=== PATIENT | male | born 1950 | race Caucasian/White ===

== ENCOUNTER 2017-10-29 15:36 | Emergency (ER) | payer MEDICARE, OTHER ==
--- NOTE | 2017-10-29 16:50 | ER Report ---
History and Physical Time Seen By MD: 15:51 Hx. of Stated Complaint: PT REPORTS HE FELL A COUPLE OF WEEKS AGO, INJURED L FINGERS HPI/ROS CHIEF COMPLAINT: Third and fourth finger dislocations HISTORY OF PRESENT ILLNESS: 67-year-old male patient presents to the emergency room with complaint of third and fourth finger dislocations on the left hand. Patient states that 2 weeks ago he fell in his kitchen. He states that he dislocated his fingers at that time. He states he did see his primary care provider week ago. He came in today to have x-rays done which were ordered by his primary care provider and was referred to the emergency room and they were unable to contact the provider. Patient states he is has some decreased sensation in the ring finger. He has taken ibuprofen for this but no other medication. REVIEW OF SYSTEMS: Respiratory: No cough, no dyspnea. Cardiovascular: No chest pain, no palpitations. Gastrointestinal: No vomiting, no abdominal pain. Musculoskeletal: As noted above Allergies: Coded Allergies: bupropion (Verified Allergy, Mild, 10/29/17) Home Meds Active Scripts Magnesium Chloride (SLOW-MAG) 71.5 Mg Tablet.dr, 71.5 MG PO TID for 7 Days Prov:JIMMY TADEO 05/06/17 Reported Medications Lisinopril/Hydrochlorothiazide (LISINOPRIL-HCTZ 20-12.5 MG TAB) 1 Each Tablet, 1 EACH PO BID 05/06/17 Citalopram Hydrobromide (CITALOPRAM HBR) 40 Mg Tablet, QDAY 04/30/17 Ranitidine Hcl (Zantac 300 Mg) 300 Mg Tablet, 300 MG PO QHS 11/22/12 Aspirin (Aspirin) 81 Mg Tablet., 81 MG PO DAILY, 0 Refills 10/05/10 Past Medical/Surgical History Patient has a past medical history of hypertension, pneumonia, reflux, enlarged prostate, back pain, alcohol use, depression, anxiety, cancer. Patient has surgical history of tumor removed, right shoulder surgery, hernia repair. Patient has a family medical history of cancer. Reviewed Nurses Notes: Yes Hx Smoking: No Hx Substance Use Disorder: No Hx Alcohol Use: Yes (1 DRINK NIGHTLY, BOURBON) Constitutional Vital Sign - Last 24 Hours 10/29/17 10/29/17 15:40 18:13 Temp 98.4 Pulse 86 82 Resp 16 16 B/P (MAP) 127/84 134/95 (108) Pulse Ox 90 90 O2 Delivery Room Air Room Air Physical Exam General Appearance: The patient is alert, has no immediate need for airway protection and no current signs of toxicity. ENT: Tympanic membranes are pearly-jules, auditory canals are patent, mucous membranes are moist. Respiratory: Chest is non tender, lungs are clear to auscultation. Cardiac: regular rate and rhythm Gastrointestinal: Abdomen is soft and non tender, no masses, bowel sounds normal. Musculoskeletal: Neck: Neck is supple and non tender. Extremities have full range of motion and are non tender. Patient has obvious deformity of the third and fourth fingers, with the third finger being shortened and slightly rotated, fourth finger is obviously shortened. Patient does have a closed wound to the lateral aspect of the left third finger, it is slightly red. Skin: No rashes or lesions. DIFFERENTIAL DIAGNOSIS: After history and physical exam differential diagnosis was considered for third and fourth finger dislocations. Medical Decision Making ED Course/Re-evaluation ED Course Patient was admitted to exam room, history and physical were obtained. Differential diagnoses were considered. Patient was referred to the hospital to get x-rays on his fingers. When the x-rays were done and there was noted that they were dislocated. He was referred to the emergency room at that time. On exam his obvious that the patient has deformity of the third and fourth fingers of left hand. A digital block was performed on both the third and fourth fingers. I attempted to reduce the dislocations. I was unsuccessful. I did place the patient in finger traps. I applied 5 pounds of traction. On reevaluation the fingers look improved, I did attempt to reduce, with the hope that the wait would fatigue the muscles allowing for easy reduction. I was unable to reduce it at that time. I did place him back in the finger traps, this time with 9 pounds of traction. I left him in the traction for approximately 40 minutes, at which time I'd skin attempted reduce, I was unable to. Dr. Palacios, ER physician, also attempted to reduce the fingers, was unable. At that time I discussed the case with Dr. Li, orthopedist, he said that we could go ahead and let the patient go. That he would look at the x-rays and he returned to [facility]. At which time he would discuss the case with me. He did look at the x-rays, felt that it was a more complex reduction. He will talk with the patient tomorrow to discuss options for reduction. Contact information was given to Dr. Li. Patient is currently taking Keflex 500 mg twice a day. He is to continue taking that. I discussed this with the patient who verbalized understanding and agreement with plan. Decision to Disposition Date: Oct 29, 2017 Decision to Disposition Time: 17:57 Depart Departure Latest Vital Signs Vital Signs Date Time Temp Pulse Resp B/P (MAP) Pulse Ox O2 Delivery O2 Flow Rate FiO2 10/29/17 18:13 82 16 134/95 (108) 90 Room Air 10/29/17 15:40 98.4 Impression: Primary Impression: Dislocation, fingers Condition: Condition Unchanged Disposition: HOME OR SELF-CARE Referrals: SIS ALDRICH DO (PCP) Patient Instructions: Finger Dislocation (ED) Additional Instructions: Limit activity by pain. You will be called tonight by either myself or Dr. Li. Continue with Ibuprofen and Tylenol as needed for pain. Return to the ER if condition worsens. Problem Qualifiers Primary Impression: Dislocation, fingers Encounter type: initial encounter Qualified Codes: S63.259A - Unspecified dislocation of unspecified finger, initial encounter JASON DUKESP Oct 29, 2017 16:50
[2017-10-29 18:13] VITALS: BP 134/95
== END 2017-10-29 18:13 | disposition home or self-care (01) ==
LOC: ER 15:47
DX: S63.253A Unspecified dislocation of left middle finger, initial encounter (principal); S63.255A Unspecified dislocation of left ring finger, initial encounter
CPT/HCPCS: 99283

== ENCOUNTER → 2017-10-29 | Outpatient (CLI) | payer MEDICARE, OTHER ==
[~2017-10-29] MED LIST: ALP5 PO; ASPI-715 PO; CITA-128 PO; CITA-141; FLOMAX; GABA-547; GLUC-232 PO; LISI-347 PO; LISI-353 PO; LISINOPRIL-HCTZ; MAGN71.52 PO; PAR20 PO; RANI-320 PO; [UNRECOGNIZED DRUG - OTHER]
--- NOTE | 2017-10-29 16:07 | RADIOLOGY IMAGING REPORT ---
[place] [facility] [place] NAME: Rui Mcgarry : 1950 MR: [id number] V: [id number] EXAM DATE: ORDERING PHYSICIAN: SIS ALDRICH TECHNOLOGIST: Location: [facility] Patient: Rui Mcgarry : 1950 Visit/Account:[id number] Date of Sevice: 10/29/2017 FINGER LEFT 4TH DIGIT, FINGER LEFT 3RD DIGIT Indication: Pain and swelling Comparison: None. Findings: There is posterior dislocation of the middle finger at the PIP joint. There is posterior dislocation in the ring finger at the PIP joint. There is a small ossified fragme nt, which is likely at the PIP joint of the ring finger. IMPRESSION: Dislocation PIP joint of both the middle and ring finger left hand. Report Dictated By: Rui Rodriguez at 10/29/2017 3:59 PM Report E-Signed By: Rui Rodriguez at 10/29/2017 4:02 PM WSN:[email or web address]
--- NOTE | 2017-10-29 16:07 | RADIOLOGY IMAGING REPORT ---
FACILITY: [facility] - [place] PATIENT NAME: Rui Mcgarry : 1950 MR: [id number] V: [id number] EXAM DATE: ORDERING PHYSICIAN: SIS ALDRICH TECHNOLOGIST: Location: [facility] - [place] Patient: Rui Mcgarry : 1950 Visit/Account:[id number] Date of Sevice: 10/29/2017 FINGER LEFT 4TH DIGIT, FINGER LEFT 3RD DIGIT Indication: Pain and swelling Comparison: None. Findings: There is posterior dislocation of the middle finger at the PIP joint. There is posterior dislocation in the ring finger at the PIP joint. There is a small ossified fragme nt, which is likely at the PIP joint of the ring finger. IMPRESSION: Dislocation PIP joint of both the middle and ring finger left hand. Report Dictated By: Rui Rodriguez at 10/29/2017 3:59 PM Report E-Signed By: Rui Rodriguez at 10/29/2017 4:02 PM WSN:[email or web address]
== END ==
LOC: RAD 15:05
PROVIDERS: ATTEND Family Medicine
DX: S63.282A Dislocation of proximal interphalangeal joint of right middle finger, initial encounter (principal); S63.284A Dislocation of proximal interphalangeal joint of right ring finger, initial encounter

== ENCOUNTER → 2017-11-02 | Outpatient (CLI) | payer MEDICARE, OTHER ==
--- NOTE | 2017-11-02 15:48 | EKG ---
[place]AC[place] [facility] [place] NAME: KERRI GARCIA : [id number] MR: [id number] V: [id number] EXAM DATE: ORDERING PHYSICIAN: LM WATERS TECHNOLOGIST: GREG Crabtree Reason : PRE-OP Blood Pressure : / mmHG Vent. Rate : 086 BPM Atrial Rate : 086 BPM P-R Int : 160 ms QRS Dur : 094 ms QT Int : 350 ms P-R-T Axes : 041 029 028 degrees QTc Int : 418 ms Normal sinus rhythm Normal ECG When compared with ECG of 06-MAY-2017 21:18, No significant change was found Confirmed by HILARY GREENFIELD ([id number]) on 11/02/2017 6:56:40 PM Referred By: JT Confirmed By:HILARY GREENFIELD
[2017-11-02 16:16] LABS: PLATELET COUNT, AUTOMATED 161 K/uL (150-450)
== END ==
LOC: LAB 15:13
PROVIDERS: ATTEND Anesthesiology
DX: Z01.812 Encounter for preprocedural laboratory examination (principal); Z01.810 Encounter for preprocedural cardiovascular examination; S63.253A Unspecified dislocation of left middle finger, initial encounter; S63.255A Unspecified dislocation of left ring finger, initial encounter
CPT/HCPCS: 36415; 82040; 82247; 82310; 82374; 82435; 82565; 82947; 84075; 84132; 84155; 84295; 84450; 84460; 84520; 85025; 93005

== ENCOUNTER → 2018-04-04 | Outpatient (REF) ==
[~2018-04-04] MED LIST changes: +OMEP-218 PO
== END ==
LOC: AMB 15:41
PROVIDERS: ATTEND Nurse Practitioner
DX: K92.2 Gastrointestinal hemorrhage, unspecified (principal)

== ENCOUNTER → 2018-04-04 | Outpatient (CLI) | payer MEDICARE, OTHER | LOC: AMB 12:35 | PROVIDERS: ATTEND Nurse Practitioner | DX: K92.1 Melena (principal); R19.7 Diarrhea, unspecified; R53.1 Weakness; R06.02 Shortness of breath; I95.9 Hypotension, unspecified | CPT/HCPCS: A0425; A0427 ==

== ENCOUNTER 2018-04-30 12:20 | Inpatient (IN) | payer MEDICARE, OTHER ==
[~2018-04-30] VITALS: Ht 165.1 cm; Wt 101.7 kg
[~2018-04-30 12:20] MED LIST changes: -ALPR-429 PO; -CITA-145 PO; -CITA-156 PO; -Calcium Carbonate/Vitamin D3 PO; -GABA-547 PO; -GABA-549 PO; -HYDR25CA83 PO; -LISI-362 PO; -LISI5TAB25 PO; -MELA3TAB31 PO; -MELO-205 PO; -MULT-1379 PO; -OSCAL D PO; -OXYGENHOME INH; -PANT40SU3 PO; -PANT40TA65 PO; -TOPI-23 PO
--- NOTE | 2018-04-30 12:23 | ER Report ---
History and Physical Time Seen By MD: 12:23 (DIAZ CARNEY MD) HPI/ROS CHIEF COMPLAINT: Chest pain HISTORY OF PRESENT ILLNESS: Patient is a 68-year-old male who is a poor historian who presents to the emergency department via ambulance for call of chest pain.. Earlier this morning the patient developed some chest discomfort he called his primary doctor who told him to come to the emergency department. Patient's last admission was early March to this hospital at which time he was having vomiting blood in GI bleed. He was emergently transfused and transferred to [facility] and underwent opera tion was found to have bleeding ulcers. Patient has a history of prior alcohol use and abuse but at this time denies any. Currently the patient states his symptoms and pain free. He denies any vomiting blood, melena or blood in stools. He denies any nausea or vomiting he denies chest pain or shortness of breath he denies fevers or chills. Patient states that he lives alone with his dog has not been able to take care of himself. EMS arrived to see no findings the patient standing in his driveway and he was brought to the emergency department for evaluation. Return to EMS the patient's house was quite filthy. Patient has been only able to live on one level and not have access to his food apparently. The patient has been urinating and defecating and bucket since he is not able to access his bathroom. REVIEW OF SYSTEMS: Constitutional: No fever, no chills. Eyes: No discharge. ENT: No sore throat. Cardiovascular: Chest pain, no palpitations Respiratory: No cough, no shortness of breath. Gastrointestinal: No abdominal pain, no vomiting. Genitourinary: No hematuria. Musculoskeletal: No back pain. Skin: No rashes. Neurological: No headache. (DIAZ CARNEY MD) Allergies: Coded Allergies: bupropion (Verified Allergy, Mild, 10/29/17) Home Meds Discontinued Reported Medications Topiramate (TOPIRAMATE) 25 Mg Tablet, 25 MG PO BID 04/30/18 Gabapentin (GABAPENTIN) 300 Mg Capsule, 100 MG PO TID, CAPSULE 04/30/18 Pantoprazole Sodium (PANTOPRAZOLE SODIUM) 40 Mg Tablet.dr, 40 MG PO QDAY, TAB.SR 04/30/18 Meloxicam (MELOXICAM) 7.5 Mg Tablet, 7.5 MG PO QDAY 04/30/18 Omeprazole Magnesium (PRILOSEC OTC) 20 Mg Tablet.dr, 1 TAB PO QDAY, TAB 04/04/18 Lisinopril/Hydrochlorothiazide (LISINOPRIL-HCTZ 20-12.5 MG TAB) 1 Each Tablet, 1 EACH PO BID 05/06/17 Citalopram Hydrobromide (CITALOPRAM HBR) 40 Mg Tablet, QDAY 04/30/17 Aspirin (Aspirin) 81 Mg Tablet.dr, 81 MG PO DAILY, 0 Refills 10/05/10 Past Medical/Surgical History Patient has a past medical history of hypertension, pneumonia, reflux, enlarged prostate, back pain, alcohol use, depression, anxiety, cancer. Patient has surgical history of tumor removed, right shoulder surgery, hernia repair. Patient has a family medical history of cancer. (DIAZ CARNEY MD) Hx Smoking: No Hx Substance Use Disorder: No Hx Alcohol Use: Yes (1 DRINK NIGHTLY, BOURBON-sober 1 month) (DIAZ CARNEY MD) Constitutional Vital Sign - Last 24 Hours 04/30/18 04/30/18 04/30/18 04/30/18 12:22 12:23 12:30 12:45 Temp 98.7 Pulse 99 Resp 20 B/P (MAP) 140/88 140/88 (105) 120/89 (99) Pulse Ox 90 O2 Delivery Room Air O2 Flow Rate 1.0 04/30/18 04/30/18 04/30/18 04/30/18 12:50 13:00 13:20 13:30 Pulse 85 78 Resp 21 21 B/P (MAP) 116/75 (89) 112/76 (88) Pulse Ox 99 100 04/30/18 04/30/18 13:50 14:00 Pulse 76 Resp 12 B/P (MAP) 125/89 (101) Pulse Ox 100 (LAURORA,FAISAL V DO) Physical Exam General/Constitutional: Patient is awake, alert, disheveled and unkempt with some difficulty thinking Head: Normocephalic and atraumatic. Eyes: Conjunctival clear, Pupils are equal and reactive to light. Extraocular muscles are intact and symmetrical. Sclera are clear and anicteric. Ears:External canals are clear. Tympanic membranes are clear with normal landmarks and light reflex. Nares: No rhinorrhea or bleeding. Turbinates are pink and moist. Oropharyngeal: Mucous membranes are moist. There is no pharyngeal erythema or exudate. There are no palatal petechiae. Uvula is midline and symmetrical. Acetone-like odor on breath Neck: Supple, no adenopathy. Cardiovascular: Heart is regular rate and rhythm without audible murmurs, rubs or gallops. Pulmonary: Lungs are clear to auscultation bilaterally. There are no wheezes, rales, or rhonchi. Chest rise is symmetrical Abdomen: Soft, nontender, no guarding or peritoneal signs. Surgical incision appears clean dry and intact yoselyn are intact as well. Extremities: No gross deformities, No peripheral cyanosis. Able to move all 4 extremities. Neuro: Alert and oriented X3, Skin: Patient has multiple spider hemangiomas; patient appears pale but does have redness to the creases of the palms with extension of the fingers. (DIAZ CARNEY MD) Medical Decision Making Data Points Result Diagram: 05/02/18 0523 05/02/18 0523 Laboratory Hematology Test 04/30/18 12:25 04/30/18 12:54 04/30/18 12:56 04/30/18 15:20 Red Blood Count 3.35 M/uL (4.00-5.60) Mean Corpuscular Volume 94.8 fL (80.0-96.0) Mean Corpuscular Hemoglobin 30.9 pg (26.0-33.0) Mean Corpuscular Hemoglobin Concent 32.7 g/dL (32.0-36.0) Red Cell Distribution Width 18.8 % (11.5-14.5) Mean Platelet Volume 7.9 fL (7.2-11.1) Neutrophils (%) (Auto) 69.2 % (39.4-72.5) Lymphocytes (%) (Auto) 17.6 % (17.6-49.6) Monocytes (%) (Auto) 12.4 % (4.1-12.4) Eosinophils (%) (Auto) 0.3 % (0.4-6.7) Basophils (%) (Auto) 0.5 % (0.3-1.4) Nucleated RBC Relative Count (auto) 0.0 /100WBC Neutrophils # (Auto) 5.1 K/uL (2.0-7.4) Lymphocytes # (Auto) 1.3 K/uL (1.3-3.6) Monocytes # (Auto) 0.9 K/uL (0.3-1.0) Eosinophils # (Auto) 0.0 K/uL (0.0-0.5) Basophils # (Auto) 0.0 K/uL (0.0-0.1) Nucleated RBC Absolute Count (auto) 0.00 K/uL Prothrombin Time 16.2 seconds (12.0-14.4) Prothromb Time International Ratio 1.29 Activated Partial Thromboplast Time 39 seconds (23-35) Sodium Level 131 mmol/L (137-145) Potassium Level 3.1 mmol/L (3.5-5.0) Chloride Level 91 mmol/L (98-107) Carbon Dioxide Level 27 mmol/L (22-30) Blood Urea Nitrogen 11 mg/dl (9-21) Creatinine 0.80 mg/dl (0.66-1.25) Glomerular Filtration Rate Calc > 60.0 Random Glucose 77 mg/dl (75-110) Total Bilirubin 1.5 mg/dl (0.2-1.3) Aspartate Amino Transf (AST/SGOT) 27 U/L (0-35) Alanine Aminotransferase (ALT/SGPT) 25 U/L (0-56) Alkaline Phosphatase 113 U/L (0-126) B-Type Natriuretic Peptide 312 pg/ml (0-100) Total Protein 6.1 g/dl (6.3-8.2) Albumin 2.6 g/dl (3.5-5.0) Thyroid Stimulating Hormone (TSH) 1.27 uIU/ml (0.46-4.68) Serum Alcohol < 10 mg/dl Ammonia < 9 UMOL/L (9-33) Stool Occult Blood (IFOB) Negative (NEGATIVE) Urine Color Yellow Urine Clarity Clear Urine pH 6.0 pH (4.8-9.5) Urine Specific [place] 1.010 Urine Protein Negative mg/dL (NEGATIVE) Urine Glucose (UA) Negative mg/dL (NEGATIVE) Urine Ketones 20 mg/dL (NEGATIVE) Urine Blood Negative (NEGATIVE) Urine Nitrite Negative (NEGATIVE) Urine Bilirubin Negative (NEGATIVE) Urine Urobilinogen 4.0 mg/dL (0.2-1.9) Urine Leukocyte Esterase Negative (NEGATIVE) Urine RBC None /HPF (0-2/HPF) Urine WBC 2 /HPF (0-5/HPF) Urine Squamous Epithelial Cells Few /LPF (</=FEW) Urine Bacteria Negative /HPF (NONE-FEW) Urine Mucus None /HPF (NONE-FEW) Test 04/30/18 16:30 Calcium Level 6.4 mg/dl (8.4-10.2) Magnesium Level 1.3 mg/dl (1.7-2.2) Troponin I 0.020 ng/ml Urine Opiates Screen Negative Urine Barbiturates Screen Negative Ur Tricyclic Antidepressants Screen Negative Urine Phencyclidine Screen Negative Urine Amphetamines Screen Negative Urine Benzodiazepines Screen Negative Urine Cocaine Screen Negative Urine Cannabinoids Screen Negative Chemistry Test 04/30/18 12:25 04/30/18 12:54 04/30/18 12:56 04/30/18 15:20 White Blood Count 7.4 k/uL (4.5-11.0) Red Blood Count 3.35 M/uL (4.00-5.60) Hemoglobin 10.4 g/dL (14.0-18.0) Hematocrit 31.8 % (42.0-52.0) Mean Corpuscular Volume 94.8 fL (80.0-96.0) Mean Corpuscular Hemoglobin 30.9 pg (26.0-33.0) Mean Corpuscular Hemoglobin Concent 32.7 g/dL (32.0-36.0) Red Cell Distribution Width 18.8 % (11.5-14.5) Platelet Count 182 K/uL (150-450) Mean Platelet Volume 7.9 fL (7.2-11.1) Neutrophils (%) (Auto) 69.2 % (39.4-72.5) Lymphocytes (%) (Auto) 17.6 % (17.6-49.6) Monocytes (%) (Auto) 12.4 % (4.1-12.4) Eosinophils (%) (Auto) 0.3 % (0.4-6.7) Basophils (%) (Auto) 0.5 % (0.3-1.4) Nucleated RBC Relative Count (auto) 0.0 /100WBC Neutrophils # (Auto) 5.1 K/uL (2.0-7.4) Lymphocytes # (Auto) 1.3 K/uL (1.3-3.6) Monocytes # (Auto) 0.9 K/uL (0.3-1.0) Eosinophils # (Auto) 0.0 K/uL (0.0-0.5) Basophils # (Auto) 0.0 K/uL (0.0-0.1) Nucleated RBC Absolute Count (auto) 0.00 K/uL Prothrombin Time 16.2 seconds (12.0-14.4) Prothromb Time International Ratio 1.29 Activated Partial Thromboplast Time 39 seconds (23-35) Glomerular Filtration Rate Calc > 60.0 Total Bilirubin 1.5 mg/dl (0.2-1.3) Aspartate Amino Transf (AST/SGOT) 27 U/L (0-35) Alanine Aminotransferase (ALT/SGPT) 25 U/L (0-56) Alkaline Phosphatase 113 U/L (0-126) B-Type Natriuretic Peptide 312 pg/ml (0-100) Total Protein 6.1 g/dl (6.3-8.2) Albumin 2.6 g/dl (3.5-5.0) Thyroid Stimulating Hormone (TSH) 1.27 uIU/ml (0.46-4.68) Serum Alcohol < 10 mg/dl Ammonia < 9 UMOL/L (9-33) Stool Occult Blood (IFOB) Negative (NEGATIVE) Urine Color Yellow Urine Clarity Clear Urine pH 6.0 pH (4.8-9.5) Urine Specific [place] 1.010 Urine Protein Negative mg/dL (NEGATIVE) Urine Glucose (UA) Negative mg/dL (NEGATIVE) Urine Ketones 20 mg/dL (NEGATIVE) Urine Blood Negative (NEGATIVE) Urine Nitrite Negative (NEGATIVE) Urine Bilirubin Negative (NEGATIVE) Urine Urobilinogen 4.0 mg/dL (0.2-1.9) Urine Leukocyte Esterase Negative (NEGATIVE) Urine RBC None /HPF (0-2/HPF) Urine WBC 2 /HPF (0-5/HPF) Urine Squamous Epithelial Cells Few /LPF (</=FEW) Urine Bacteria Negative /HPF (NONE-FEW) Urine Mucus None /HPF (NONE-FEW) Test 04/30/18 16:30 Calcium Level 6.4 mg/dl (8.4-10.2) Magnesium Level 1.3 mg/dl (1.7-2.2) Troponin I 0.020 ng/ml Urine Opiates Screen Negative Urine Barbiturates Screen Negative Ur Tricyclic Antidepressants Screen Negative Urine Phencyclidine Screen Negative Urine Amphetamines Screen Negative Urine Benzodiazepines Screen Negative Urine Cocaine Screen Negative Urine Cannabinoids Screen Negative Coagulation Test 04/30/18 12:25 Prothrombin Time 16.2 seconds Prothromb Time International Ratio 1.29 Activated Partial Thromboplast Time 39 seconds Toxicology Test 04/30/18 12:25 04/30/18 16:30 Serum Alcohol < 10 mg/dl Urine Opiates Screen Negative Urine Barbiturates Screen Negative Ur Tricyclic Antidepressants Screen Negative Urine Phencyclidine Screen Negative Urine Amphetamines Screen Negative Urine Benzodiazepines Screen Negative Urine Cocaine Screen Negative Urine Cannabinoids Screen Negative Urinalysis Test 04/30/18 15:20 Urine Color Yellow Urine Clarity Clear Urine pH 6.0 pH (4.8-9.5) Urine Specific [place] 1.010 Urine Protein Negative mg/dL (NEGATIVE) Urine Glucose (UA) Negative mg/dL (NEGATIVE) Urine Ketones 20 mg/dL (NEGATIVE) Urine Blood Negative (NEGATIVE) Urine Nitrite Negative (NEGATIVE) Urine Bilirubin Negative (NEGATIVE) Urine Urobilinogen 4.0 mg/dL (0.2-1.9) Urine Leukocyte Esterase Negative (NEGATIVE) Urine RBC None /HPF (0-2/HPF) Urine WBC 2 /HPF (0-5/HPF) Urine Squamous Epithelial Cells Few /LPF (</=FEW) Urine Bacteria Negative /HPF (NONE-FEW) Urine Mucus None /HPF (NONE-FEW) (FAISAL CAI DO) EKG/Imaging EKG Interpretation My EKG interpretation is sinus rhythm with a ventricular rate of 84 bpm. There is extremely poor tremor at baseline tach which are affecting the overall interpretation however it is my impression looking at the monitors well as from physical exam findings and this EKG that this most likely represents normal sinus rhythm with just very poor baseline artifact. Monitor Interpretation: Normal Sinus Rhythm Imaging FACILITY: [facility] - [place] PATIENT NAME: Rui Mcgarry : 1950 MR: [id number] V: [id number] EXAM DATE: [id number] ORDERING PHYSICIAN: DIAZ CARNEY TECHNOLOGIST: Location: [facility] Patient: Rui Mcgarry : 1950 Visit/Account:[id number] Date of Sevice: 04/30/2018 CHEST, 1 view, portable at 1304 hours History: Chest pain COMPARISON: 12/06/2010 FINDINGS: Heart size, pulmonary vasculature, mediastinum and ken are normal. Lungs are clear of infiltrate and atelectasis. No pleural effusions or pneumothorax. Bones are unremarkable. IMPRESSION: Negative study for an acute cardiopulmonary process. No significant change from 11/2010. Report Dictated By: Mariangel Crawford MD at 04/30/2018 1:18 PM Report E-Signed By: Mariangel Crawford MD at 04/30/2018 1:20 PM WSN:[email or web address] (DIAZ CARNEY MD) ED Course/Re-evaluation ED Course 04/30/2018 12:44:35 pm patient is a very poor historian history of significant GI bleed in the last month or so. Now here for evaluation of chest pain apparently is now resolved. Decision to Disposition Date: Apr 30, 2018 Decision to Disposition Time: 18:00 (DIAZ CARNEY MD) Clinical Indication for ER IV: IV Access ED Course 04/30/2018 5:27:37 pm Pts repeat labs showed improvement of the magnesium but no clinical improvement of the calcium. Pt still symptomatic and feels diffuse weakness. I feel pt needs admission. Reviewed case with Dr. Hurt who also felt pt would be better off in the hospital. Spoke with pt and he prefers not to be admitted due to has a dog at home. Pt asked for a few minutes to call his ex and then will decide. 04/30/2018 5:37:06 pm PT willing to stay. Dr. Hurt will attempt to have Physical therapy see him in the morning if they are available on Thursday. Decision to Disposition Date: Apr 30, 2018 Decision to Disposition Time: 17:41 (FAISAL CAI DO) Depart Departure Latest Vital Signs Vital Signs Date Time Temp Pulse Resp B/P (MAP) Pulse Ox O2 Delivery O2 Flow Rate FiO2 04/30/18 14:00 125/89 (101) 04/30/18 13:50 76 12 100 04/30/18 12:45 1.0 04/30/18 12:22 98.7 Room Air (LAURORA,FAISAL V DO) Impression: Primary Impression: Hypomagnesemia Additional Impressions: Hypocalcemia Hypokalemia Weakness Condition: Condition Unchanged Disposition: Admitted from ER Referrals: SSI ALDRICH DO (PCP) Problem Qualifiers DIAZ CARNEY MD Apr 30, 2018 12:23 FAISAL CAI DO Apr 30, 2018 17:30
[2018-04-30] MEDS ORDERED: NS(*) 0.9% 500 ML BAG 500 ML IV ONE (12:34)
[2018-04-30] MEDS ORDERED: ASPIRIN 81 MG CHEW PO ONE (12:35)
[2018-04-30 12:52] LABS: PLATELET COUNT, AUTOMATED 182 K/uL (150-450)
[2018-04-30 13:02] LABS: INR 1.29
[2018-04-30] MEDS ORDERED: CALCIUM GLUC(*)10% 100MG/ML VL 1,000 MG in NS(*) 0.9% 100 ML BAG 100 ML IVPB ONE ×2 (13:10→20:00)
[2018-04-30] MEDS ORDERED: MAGNESIUM SUL* 2 GM/50 ML IVPB 50 ML IVPB ONE (13:10)
--- NOTE | 2018-04-30 13:20 | EKG ---
FACILITY: [facility] PATIENT NAME: KERRI GARCIA : [id number] MR: [id number] V: [id number] EXAM DATE: ORDERING PHYSICIAN: DIAZ CARNEY TECHNOLOGIST: ASHLEY Test Reason : PSYCH Blood Pressure : / mmHG Vent. Rate : 084 BPM Atrial Rate : 081 BPM P-R Int : 000 ms QRS Dur : 080 ms QT Int : 378 ms P-R-T Axes : 000 -02 001 degrees QTc Int : 446 ms Unable to read due to wavy baseline. Recommend repeat ECG. Abnormal ECG When compared with ECG of 02-NOV-2017 15:30, Junctional rhythm has replaced Sinus rhythm Confirmed by HILARY GREENFIELD ([id number]) on 04/30/2018 1:34:14 PM Referred By: ANGELIKA Confirmed By:HILARY GREENFIELD
--- NOTE | 2018-04-30 13:24 | RADIOLOGY IMAGING REPORT ---
[place] [facility] [place]: Rui Mcgarry : 1950 MR: [id number] V: [id number] EXAM DATE: [id number] ORDERING PHYSICIAN: DIAZ CARNEY TECHNOLOGIST: Location: [facility] Patient: Rui Mcgarry : 1950 Visit/Account:[id number] Date of Sevice: 04/30/2018 CHEST, 1 view, portable at 1304 hours History: Chest pain COMPARISON: 12/06/2010 FINDINGS: Heart size, pulmonary vasculature, mediastinum and ken are normal. Lungs are clear of infiltrate an d atelectasis. No pleural effusions or pneumothorax. Bones are unremarkable. IMPRESSION: Negative study for an acute cardiopulmonary process. No significant change from 11/2010. Report Dictated By: Mariangel Crawford MD at 04/30/2018 1:18 PM Report E-Signed By: Mariangel Crawford MD at 04/30/2018 1:20 PM WSN:MARY
[2018-04-30] MEDS ORDERED: POTASSIUM CHL 10 MEQ TABCR PO ONE (15:15)
--- NOTE | 2018-04-30 16:52 | EKG ---
FACILITY: [facility] - [place] PATIENT NAME: KERRI GARCIA : [id number] MR: [id number] V: [id number] EXAM DATE: ORDERING PHYSICIAN: FAISAL CAI TECHNOLOGIST: ASHLEY Test Reason : CONFUSED Blood Pressure : / mmHG Vent. Rate : 107 BPM Atrial Rate : 107 BPM P-R Int : 144 ms QRS Dur : 080 ms QT Int : 356 ms P-R-T Axes : -14 -05 000 degrees QTc Int : 475 ms Wavy baseline makes interpretation difficult. Appears to be sinus tachycardia. Otherwise normal ECG When compared with ECG of 30-APR-2018 12:50, Previous ECG has undetermined rhythm, needs review Confirmed by HILARY GREENFIELD ([id number]) on 04/30/2018 5:28:18 PM Referred By: ANGELIKA Confirmed By:HILARY GREENFIELD
[2018-04-30] MEDS ORDERED: MELO-205 PO (17:14)
[2018-04-30] MEDS ORDERED: PANT40TA65 PO (17:14)
[2018-04-30] MEDS ORDERED: GABA-549 PO (17:14)
[2018-04-30] MEDS ORDERED: TOPI-23 PO (17:14)
[2018-04-30 18:15] VITALS: BP 133/91
[2018-04-30] MEDS ORDERED: ACETAMINOPHEN 325 MG TAB PO PRN (18:20)
--- NOTE | 2018-04-30 19:40 | History & Physical ---
History of Present Illness Chief Complaint The patient is a 68 year old male with PMH significant for recent bleeding ulcer resulting in life flight to [facility] (laparotomy there), HTN and hx of alcohol abuse (none for 1 month) who presents with generalized weakness since returning home from [facility] about 2 weeks ago. History of Present Illness The patient has a history of heavy alcohol use but states he has not had any alcohol since his stay at [facility]. He presented to [facility] on April 04 of this year and was found to be actively bleeding. He was Life Flighted to [facility] where he underwent a laparotomy. The patient is a poor historian and does not recall all of the details of his stay there. He does remember he was told he had "bleeding ulcers" and to stop taking ibuprofen. The patient returned to [place] to the trilevel home he rents. He lives alone with his dog. He was supposed to have Home Health but for reasons that are not entirely clear, this did not occur. The patient states he was so weak he could not manage the stairs in his home. He was unable to get to his kitchen or his bathroom. He was not eating and was urinating and defecating in a bucket. His medications were on the lower level so he states he has not taken any medication since he returned from [facility]. He was not entirely clear about what medications he was supposed to be taking. He did recall taking citalopram for depression/anxiety and lisinopril/HCTZ for HTN. He had been on Prilosec prior to his stay at [facility]. He states he fills short term med s at [facility] and has [facility] as his mail order pharmacy. The patient notes that his balance has been very poor. He has seen Dr. Winston Barrett, neurologist, in [place]. He was told he had "pockets of water on the brain" as the reason for his imbalance. He states he was placed on a couple of medications for this but can not recall what they are or when he last took them. He believes the last time he saw Dr. Barrett was a year ago. The patient complains of feeling generally very weak. His balance is poor. He feels his memory is poor as well. He denies passing any bright red blood per rectum or having any dark tarry stools. He has not had nausea or vomiting. He did have "tingling" in his chest this am which lasted about 20 minutes and this is actually the reason he called EMS. History Problems: (1) Hx of colonic polyp (2) Abnormal colonoscopy (3) History of inguinal hernia repair (4) Hx of spinal surgery (5) H/O repair of rotator cuff (6) Chronic back pain Status: Chronic (7) History of alcohol use Status: Resolved (8) GENERALIZED ANXIETY DISORDER (9) Depression Status: Chronic (10) BPH (benign prostatic hyperplasia) (11) GERD (gastroesophageal reflux disease) Status: Chronic (12) Peptic ulcer disease with hemorrhage (13) HTN (hypertension) Status: Chronic (14) Flexion contractures Comment: L 3rd and 4th fingers. Home Meds Discontinued Reported Medications Topiramate (TOPIRAMATE) 25 Mg Tablet, 25 MG PO BID 04/30/18 Gabapentin (GABAPENTIN) 300 Mg Capsule, 100 MG PO TID, CAPSULE 04/30/18 Pantoprazole Sodium (PANTOPRAZOLE SODIUM) 40 Mg Tablet.dr, 40 MG PO QDAY, TAB.SR 04/30/18 Meloxicam (MELOXICAM) 7.5 Mg Tablet, 7.5 MG PO QDAY 04/30/18 Omeprazole Magnesium (PRILOSEC OTC) 20 Mg Tablet.dr, 1 TAB PO QDAY, TAB 04/04/18 Lisinopril/Hydrochlorothiazide (LISINOPRIL-HCTZ 20-12.5 MG TAB) 1 Each Tablet, 1 EACH PO BID 05/06/17 Citalopram Hydrobromide (CITALOPRAM HBR) 40 Mg Tablet, QDAY 04/30/17 Aspirin (Aspirin) 81 Mg Tablet.dr, 81 MG PO DAILY, 0 Refills 10/05/10 Allergies: Coded Allergies: bupropion (Verified Allergy, Mild, 10/29/17) Patient History: FH: breast cancer MOTHER Other Social/Family Hx The patient lives with his dog in a trilevel home which he rents. 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 He is . Hx Smoking: Yes Smoking Status: Former Smoker Caffeine Intake: Coffee, Soda Caffeine/Cups Per Day: 3 Hx Alcohol Use: Yes (1 DRINK NIGHTLY, [place]-sober 1 month) Hx Substance Use Disorder: No History of IV Drug Use: No Review of Systems Constitutional: Other (Generalized weakness. ) Neurological: Other (Balance is poor. Memory loss. Chronic back and R leg pain.) Eyes: Other (Wears glasses.) ENT: Tinnitus, Other (No pain in teeth.) Cardiovascular: Chest Pain (Tingling in chest earlier today for 20 minutes. No history of heart problems. HTN.) Respiratory: Other (Hx of pneumonia.); No Shortness of Breath Gastrointestinal: No Nausea, No Vomiting, No Diarrhea, No Hematemesis, No Hematochezia, No Melena, No Abdominal Pain; Other (GERD. PUD with recent bleeding ulcer. Denies any trouble swallowing. Inguinal hernia with repair.) Genitourinary: Other (Nocturia.) Musculoskeletal: Pain (Back and R leg, chronic.) Psychiatric: Depression, Anxiety, Other (Hx of heavy alcohol use.) Exam Vital Signs Vital Signs Date Time Temp Pulse Resp B/P (MAP) Pulse Ox O2 Delivery O2 Flow Rate FiO2 04/30/18 18:26 94 Nasal Cannula 2.0 04/30/18 18:15 98.5 104 18 133/91 (105) General Appearance: Alert, Awake, No Acute Distress Neuro: Other (Very slow to answer questions at times. Has trouble focusing. Memory overall is diminished. Gait not tested. Can move all 4 extremities. No facial weakness. The patient has a significant tremor.) Eyes: PERRLA ENT: Moist Mucous Membranes, Other (Teeth in decent repair. Many fillings.) Cardiovascular: Regular Rate and Rhythm, Other (R leg with 1+ pitting edema to the knee.) Respiratory: No Respiratory Distress, Clear to Auscultation GI: Abd Soft and Non-Tender, Other (Midline surgical wound with yoselyn in place. Each staple with some redness surrounding the prongs. No drainage. No swelling.) Lymph: Cervical Nodes Benign Extremities: Warm, Perfused, Other (R LE edema. ) Integumentary: Other (Scaling patch over top of left foot. Some scabbing. Scabbing over R and L toes. L arm with bruising and scratches.) Psych: Alert & Oriented X3, Appropriate Mood & Affect Medical Decision Making Data Points Result Diagram: 04/30/18 1225 04/30/18 1225 Item Value Date Time Calcium Level 6.2 mg/dl *L 04/30/185 Magnesium Level 0.7 mg/dl *L 04/30/18 1225 Total Bilirubin 1.5 mg/dl H 04/30/18 1225 Aspartate Amino Transf (AST/SGOT) 27 U/L 04/30/18 1225 Alanine Aminotransferase (ALT/SGPT) 25 U/L 04/30/18 1225 Alkaline Phosphatase 113 U/L 04/30/18 1225 Total Protein 6.1 g/dl L 04/30/18 1225 Albumin 2.6 g/dl L 04/30/18 1225 B-Type Natriuretic Peptide 312 pg/ml H 04/30/18 1225 Troponin I 0.027 ng/ml 04/30/18 1225 Troponin I 0.020 ng/ml 04/30/18 1630 Ammonia < 9 UMOL/L L 04/30/18 1254 Thyroid Stimulating Hormone (TSH) 1.27 uIU/ml 04/30/18 1225 Calcium Level 6.4 mg/dl *L 04/30/18 1630 Magnesium Level 1.3 mg/dl L 04/30/18 1630 Urine Opiates Screen Negative 04/30/18 1630 Urine Barbiturates Screen Negative 04/30/18 1630 Ur Tricyclic Antidepressants Screen Negative 04/30/18 1630 Urine Phencyclidine Screen Negative 04/30/18 1630 Urine Amphetamines Screen Negative 04/30/18 1630 Urine Benzodiazepines Screen Negative 04/30/18 1630 Urine Cocaine Screen Negative 04/30/18 1630 Urine Cannabinoids Screen Negative 04/30/18 1630 Serum Alcohol < 10 mg/dl 04/30/18 1225 Stool Occult Blood (IFOB) Negative 04/30/18 1256 Prothrombin Time 16.2 seconds H 04/30/18 1225 Prothromb Time International Ratio 1.29 04/30/18 1225 Activated Partial Thromboplast Time 39 seconds H 04/30/18 1225 Urine Color Yellow 04/30/18 1520 Urine Clarity Clear 04/30/18 1520 Urine pH 6.0 pH 04/30/18 1520 Urine Specific [place] 1.010 04/30/18 1520 Urine Protein Negative mg/dL 04/30/18 1520 Urine Glucose (UA) Negative mg/dL 04/30/18 1520 Urine Ketones 20 mg/dL H 04/30/18 1520 Urine Blood Negative 10/5/18 1520 Urine Nitrite Negative 04/30/18 1520 Urine Bilirubin Negative 04/30/18 1520 Urine Leukocyte Esterase Negative 04/30/18 1520 Urine Urobilinogen 4.0 mg/dL H 04/30/18 1520 Urine RBC None /HPF 04/30/18 1520 Urine WBC 2 /HPF 04/30/18 1520 Urine Squamous Epithelial Cells Few /LPF 04/30/18 1520 Urine Bacteria Negative /HPF 04/30/18 1520 Urine Mucus None /HPF 04/30/18 1520 EKG / Imaging EKG Interpretation FACILITY: [facility] PATIENT NAME: RUI MCGARRY : [id number] MR: [id number] V: [id number] EXAM DATE: [id number] ORDERING PHYSICIAN: FAISAL CAI TECHNOLOGIST: ASHLEY Test Reason : CONFUSED Blood Pressure : / mmHG Vent. Rate : 107 BPM Atrial Rate : 107 BPM P-R Int : 144 ms QRS Dur : 080 ms QT Int : 356 ms P-R-T Axes : -14 -05 000 degrees QTc Int : 475 ms Wavy baseline makes interpretation difficult. Appears to be sinus tachycardia. Otherwise normal ECG When compared with ECG of 30-APR-2018 12:50, Previous ECG has undetermined rhythm, needs review Confirmed by HILARY GREENFIELD ([id number]) on 04/30/2018 5:28:18 PM Referred By: ANGELIKA Confirmed By:HILARY GREENFIELD [id number] T: [facility]/ Imaging FACILITY: [facility] PATIENT NAME: Rui Mcgarry : 1950 MR: [id number] V: [id number] EXAM DATE: [id number] ORDERING PHYSICIAN: DIAZ CARNEY TECHNOLOGIST: Location: [facility] Patient: Rui Mcgarry : 1950 Visit/Account:[id number] Date of Sevice: 04/30/2018 CHEST, 1 view, portable at 1304 hours History: Chest pain COMPARISON: 12/06/2010 FINDINGS: Heart size, pulmonary vasculature, mediastinum and ken are normal. Lungs are clear of infiltrate and atelectasis. No pleural effusions or pneumothorax. Bones are unremarkable. IMPRESSION: Negative study for an acute cardiopulmonary process. No significant change from 11/2010. Report Dictated By: Mariangel Crawford MD at 04/30/2018 1:18 PM Report E-Signed By: Mariangel Crawford MD at 04/30/2018 1:20 PM WSN:MARY Pre-Admit Course ED Medications Magnesium, calcium, potassium, NS, ASA. Medical Record Review: Yes Assessment and Plan Problems: (1) Hypomagnesemia Status: Acute Assessment & Plan: He received IV magnesium in the ER and a repeat magnesium level remained low. Place on telemetry. Will give 4g IV and recheck a magnesium in the am. (2) Hypokalemia Status: Acute Assessment & Plan: He received 40meq of oral potassium in ER. Will place on telemetry and add potassium 20meq to each liter of IV fluids. Repeat BMP in am. (3) Hypocalcemia Status: Acute Assessment & Plan: He received a gram of calcium gluconate in ER. His calcium remains low. Will give another gram of calcium gluconate. (4) Weakness Status: Acute Assessment & Plan: Likely due to recent acute medical illness as noted above as well as poor oral intake resulting in multiple electrolyte abnormalities. (5) Peptic ulcer disease Status: Chronic Assessment & Plan: With recent GI bleed. The patient was hospitalized at [facility] and had a laparotomy. Will fax a record request. He has not been taking a PPI since discharge. Will place on pantoprazole. (6) HTN (hypertension) Status: Chronic Assessment & Plan: He reports taking lisinopril/HCTZ in the past. He is currently on no meds. BP is WNL. Will monitor. He may be improved due to alcohol cessation. (7) GERD (gastroesophageal reflux disease) Status: Chronic Assessment & Plan: Will place on pantoprazole here. (8) Depression Status: Chronic Assessment & Plan: He has been on citalopram in the past. (9) History of alcohol use Status: Resolved Assessment & Plan: The patient states he has not had a drink since his stay at [facility]. His alcohol level on admission was <10. (10) Chronic back pain Status: Chronic Assessment & Plan: It appears by his external med history that his mail order pharmacy sent him an RX for meloxicam at the end of March. Will need to student loan counselor him not to take this medication at home due to recent GI bleeding. Time Spent on Plan of Care: < 30 min Copies to: SIS ALDRICH DO ; Venous Thromboembolism Antithrombotics Is Pt On Any Antithrombotics?: No Prophylaxis Tx Contraindicated Pharmacological Contraindicati: Medical Contraindication (Recent GI bleed.) Exam Sepsis Risk: No Definite Risk HILARY OVALLE MD Apr 30, 2018 19:40
[2018-04-30] MEDS: KCL/NS* 20 MEQ/1000 ML PREMIX 1,000 ML IV SCH (20:25)
[2018-04-30] MEDS ORDERED: MAGNESIUM SUL* 4 GM/100 ML BAG 100 ML IVPB ONE (21:00)
[2018-04-30] MEDS: PANTOPRAZOLE SOD 40 MG TABEC PO SCH (21:34)
[2018-04-30 22:54] VITALS: BP 136/99
[2018-05-01] VITALS (8 sets, daily range): BP systolic 99–130; BP diastolic 67–104; Ht 165.1 cm; Wt 101.7 kg
[2018-05-01 07:01] LABS: PLATELET COUNT, AUTOMATED 153 K/uL (150-450)
[2018-05-01] MEDS: PANTOPRAZOLE SOD 40 MG TABEC PO SCH ×2 (08:39→20:19)
[2018-05-01] MEDS: MULTIVITAMINS TAB PO SCH (10:02)
[2018-05-01] MEDS: CALCIUM CARBONATE/VITAMIN D3 PO SCH ×2 (10:02→17:23)
--- NOTE | 2018-05-01 10:35 | Hospitalist Progress Note ---
Subjective Progress Notes Subjective He is more concerned about his dog being alone at home than anything else at this time. He reports appetite is decreased. No abdominal pain. No fever. Physical Exam Vital Signs Date Time Temp Pulse Resp B/P (MAP) Pulse Ox O2 Delivery O2 Flow Rate FiO2 05/01/18 09:46 99.7 20 126/91 (103) 85 Room Air 05/01/18 07:22 101 05/01/18 03:56 2.0 Intake and Output 05/01/18 07:00 Intake Total 892 ml Balance 892 ml Intake IV Total 892 ml # Voids 1 General Appearance: Alert, Awake Cardiovascular: Regular Rate and Rhythm Respiratory: Clear to Auscultation GI: Soft and Non-Tender, Other (incision appears to be healing well) Extremities: Warm, Perfused Result Diagram: 05/01/1865405/01/18654 Monitor Interpretation: Normal Sinus Rhythm Assessment and Plan Problems: (1) Weakness Status: Acute Assessment & Plan: Likely due to recent acute medical illness as well as poor oral intake resulting in protein malnutrition/multiple electrolyte abnormalities. (2) Hypomagnesemia Status: Acute Assessment & Plan: Most likely due to poor oral intake. Improved/resolved with IV replacement. Will start oral replacement therapy. Continue on telemetry. (3) Hypokalemia Status: Acute Assessment & Plan: Most likely due to poor oral intake. Improved with oral/IV replacement. Watch labs. (4) Hypocalcemia Status: Acute Assessment & Plan: Most likely due to poor intake. Improved with IV supplements. Will start Vit D plus calcium. Monitor labs. (5) Peptic ulcer disease Status: Chronic Assessment & Plan: With recent GI bleed. The patient was hospitalized at [facility] and had a laparotomy (yoselyn now removed - no dehiscence). Awaiting record request. He has not been taking PPI therapy since discharge - he is now on pantoprazole. (6) HTN (hypertension) Status: Chronic Assessment & Plan: He reports taking lisinopril/HCTZ in the past. He is currently on no meds. BP is acceptable. Will monitor. He may be improved due to alcohol cessation. (7) GERD (gastroesophageal reflux disease) Status: Chronic Assessment & Plan: Currently on pantoprazole. (8) Depression Status: Chronic Assessment & Plan: He has been on citalopram in the past. (9) History of alcohol use Status: Resolved Assessment & Plan: The patient states he has not had a drink since his stay at [facility]. His alcohol level on admission was <10. (10) Chronic back pain Status: Chronic Assessment & Plan: It appears by his external med history that his mail order pharmacy sent him an RX for meloxicam at the end of March. We will credit counselor him not to take this medication at home due to recent GI bleeding. (11) Anemia due to blood loss Status: Chronic Assessment & Plan: Most likely due to recent UGI bleeding requiring surgical repair (records pending) and possibly recent poor nutrition. Watch closely. Exam Sepsis Risk: No Definite Risk JESSY OVALLE MD May 01, 2018 10:35
[2018-05-01] MEDS: KCL/NS* 20 MEQ/1000 ML PREMIX 1,000 ML IV SCH (15:51)
[2018-05-02 04:00] VITALS: BP 122/86
[2018-05-02] MEDS: KCL/NS* 20 MEQ/1000 ML PREMIX 1,000 ML IV SCH (06:06)
[2018-05-02 06:24] LABS: PLATELET COUNT, AUTOMATED 144 K/uL (150-450)
[2018-05-02 07:42] VITALS: BP 117/91
[2018-05-02] MEDS: MULTIVITAMINS TAB PO SCH (08:19)
[2018-05-02] MEDS: CALCIUM CARBONATE/VITAMIN D3 PO SCH ×2 (08:19→17:35)
[2018-05-02] MEDS: PANTOPRAZOLE SOD 40 MG TABEC PO SCH ×2 (08:19→20:46)
[2018-05-02] MEDS ORDERED: INFLUENZA VIRUS VAC 0.5ML SYR IM ONLY ONE (09:00)
[2018-05-02 12:45] VITALS: BP 136/95
--- NOTE | 2018-05-02 12:49 | Hospitalist Progress Note ---
Subjective Progress Notes Subjective 68M admitted for hypocalcemia. LUMA overight, some improvement in electrolytes. Concern over going home and has said some statements regarding his unhappiness. Patient Complains of: Neurological: Confusion Physical Exam Vital Signs Date Time Temp Pulse Resp B/P (MAP) Pulse Ox O2 Delivery O2 Flow Rate FiO2 05/02/18 09:18 92 Nasal Cannula 1.0 05/02/18 07:42 97.8 73 16 117/91 (100) Intake and Output 05/02/18 06:59 Intake Total 2522 ml Output Total 440 ml Balance 2082 ml Intake Oral 575 ml IV Total 1947 ml Output Urine Total 440 ml # Voids 9 # Bowel Movements 4 General Appearance: Alert, Awake, No Acute Distress Neuro: No Gross deficits Eyes: PERRLA ENT: Normal Psych: Other (mentions depressed, slightly agitated at times.) Result Diagram: 05/02/1852205/02/18522 Monitor Interpretation: Normal Sinus Rhythm Assessment and Plan Problems: (1) Weakness Status: Acute Assessment & Plan: Likely due to recent acute medical illness as well as poor oral intake resulting in protein malnutrition/multiple electrolyte abnormalities. PT/OT. (2) Hypomagnesemia Status: Acute Assessment & Plan: Most likely due to poor oral intake. Improved/resolved with IV replacement. (3) Hypokalemia Status: Acute Assessment & Plan: Most likely due to poor oral intake. Resolved with oral/IV replacement. Watch labs. (4) Hypocalcemia Status: Acute Assessment & Plan: Most likely due to poor intake. Improved with supplements. Continue Vit D plus calcium. Corrects to mildly low for albumin. (5) Peptic ulcer disease Status: Chronic Assessment & Plan: With recent GI bleed. The patient was hospitalized at [facility] and had a laparotomy (yoselyn now removed - no dehiscence). Awaiting record request. He has not been taking PPI therapy since discharge - he is now on pantoprazole. (6) HTN (hypertension) Status: Chronic Assessment & Plan: He reports taking lisinopril/HCTZ in the past. He is currently on no meds. BP is acceptable. Will monitor. He may be improved due to alcohol cessation. (7) GERD (gastroesophageal reflux disease) Status: Chronic Assessment & Plan: Currently on pantoprazole. (8) Depression Status: Chronic Assessment & Plan: He has been on citalopram in the past. Made some concerning statements. Psych consult ordered, recommend restart citalopram at 20mg and follow up outpt. (9) History of alcohol use Status: Resolved Assessment & Plan: The patient states he has not had a drink since his stay at [facility]. His alcohol level on admission was <10. (10) Chronic back pain Status: Chronic Assessment & Plan: It appears by his external med history that his mail order pharmacy sent him an RX for meloxicam at the end of March. We will residential child care counselor him not to take this medication at home due to recent GI bleeding. (11) Anemia due to blood loss Status: Chronic Assessment & Plan: Most likely due to recent UGI bleeding requiring surgical repair (records pending) and possibly recent poor nutrition. Watch closely. Exam Sepsis Risk: No Definite Risk BORGES MAEGAN GIBBONS DO May 02, 2018 12:49
[2018-05-02] MEDS: CITALOPRAM HYDROBROM 20 MG TAB PO SCH (13:31)
[2018-05-02 15:29] VITALS: BP 136/91
[2018-05-02 21:11] VITALS: BP 124/92
[2018-05-02 23:33] VITALS: BP 104/91
[2018-05-03 03:28] VITALS: BP 91/76
[2018-05-03 05:53] LABS: PLATELET COUNT, AUTOMATED 162 K/uL (150-450)
[2018-05-03 07:37] VITALS: BP 134/88
[2018-05-03] MEDS: CALCIUM CARBONATE/VITAMIN D3 PO SCH ×2 (07:55→18:05)
--- NOTE | 2018-05-03 07:55 | CONSULTATION ---
EVENT DATE: May 02, 2018 DATE OF ADMISSION TO MEDICAL FLOOR: April 30, 2018 CONSULTING PHYSICIAN Nelli Morton, Psychiatric Nurse Practitioner REASON FOR CONSULTATION Evaluate for medical recommendations. PRESENTING PROBLEM/CHIEF COMPLAINT "I have had a very bad, bad, bad, bad, bad, bad, bad day. They took my dog away." HISTORY OF PRESENT ILLNESS This is a 68-year-old male seen on the medical floor for consult. He is seen while seated in his chair in his hospital room. He is judged to be a fair historian. He does have some memory deficit. However, he is pleasant and cooperative. Patient reports that he does have a history of depression and he has been treated with citalopram for approximately the past three to four years prescribed by his primary care providers. He feels that it has been helpful for him. However, due to recent medical transfer to [place] and transfer back to his home, where he was not eating or able to take care of his ADLs, he has been off his citalopram for approximately two weeks. He did make a statement today to staff about suicide watch after he was told that his dog has been taken away from him out of his home due to his inability to care for him. Patient denies that he has suicidal intent or plan to harm himself. He reports that he did make that statement but that he would not have the spine to act on suicide. He does not have any history of suicide attempt. As mentioned, his current stressor today is the loss of his dog, who is his office machines wirer. In terms of current symptoms, he reports that he is sleeping okay, appetite has been low. He rates his current depression level as 6. Thoughts of suicide are rated 0. While home, he was living in a house that had three floors and due to his poor mobility he was not able to make it to the bathroom or to cook meals for himself so he was not eating and he was defecating in a bucket. He, therefore, was admitted to the hospital related to nutrition deficit and weakness. He is on no current psychotropic medication as mentioned because he had stopped it. He does state that he has citalopram at home. MENTAL HEALTH HISTORY He reports that he was first treated for depression three to four years ago. He has never been hospitalized for psychiatric reasons. He did see a therapist at [facility] approximately four years ago. However, the therapist left the company and he did not continue on with anyone else. His citalopram has been prescribed by his primary care providers. His last dose was 40 mg daily. He denies any previous medical trials. He denies any suicide attempt. FAMILY PSYCHIATRIC HISTORY Positive for depression in his maternal grandmother, who possibly had depression. He reports his mother is psychotic. He denies any known suicides in his family history. PAST MEDICAL HISTORY He is currently treated for hypocalcemia, hypomagnesemia, hypokalemia, bleeding ulcers, weakness, hypertension, GERD. SOCIAL HISTORY He was born and raised in [facility]. He has been two times. His most recent divorce was ten years ago. He has one adult son, who currently lives in [place]. His ex- that he ten years ago lives in [place], [place]. They have a good relationship and she continues to be supportive. At this point, he reports his and son plan to come out here and pack his belongings and move him to [place] to live near her. As mentioned, he was living alone in a trilevel home where he could not maneuver and, therefore, was not caring for his ADLs including taking his medications appropriately or eating. LEGAL HISTORY Denied. SUBSTANCE ABUSE HISTORY He reports that prior to hospitalization in [place], [place] he was drinking one to two drinks a day. He denies any treatment history for substance abuse. He denies a history of DUIs. Illicit drug use: He reports that since pot was legalized he will use marijuana candy when he can get to [place]. He denies current tobacco use. MENTAL STATUS EXAM GENERAL APPEARANCE, BEHAVIOR AND ATTITUDE: Patient is a 68-year-old male who appears his stated age. He is wearing a hospital gown. He is seated in the chair. He makes good eye contact. He is cooperative and interactive with clinician. No abnormal psychomotor activity is noted. SPEECH: Clear and spontaneous and of normal rate, rhythm and volume. MOOD: Patient describes mood as bad as he relates it to finding out that his dog has been removed from his home. AFFECT: Appropriate. There is no tearfulness noted. He is pleasant and cooperative. THOUGHT PROCESSES: Logical and goal directed. He does get a little bit off topic at times but he redirects easily. THOUGHT CONTENT: No obsessions or compulsions are noted. He denies suicidal thoughts. He denies homicidal thoughts. No delusions are elicited. He denies visual, auditory or other hallucinations. COGNITION: Patient is oriented to person, place and situation. ESTIMATED INTELLIGENCE Average. MEMORY: Immediate, recent and remote are noted to have some limitations. Long- term memory is best. INSIGHT AND JUDGMENT: Fair. He does recognize the presence of his depression. He understands that he is feeling worse today, likely related to all of the psychosocial stressors including losing his dog. He is voicing plans for the future. He is wanting to restart medication. ASSESSMENT AND RECOMMENDATIONS This is a 68-year-old male with a history of depression in his later years. He has been off his citalopram for up to several weeks just related to being transferred to a hospital out of town and then back home without home health care, where he was not caring for his ADLs appropriately. Most recent stressor was finding out that his dog has been removed from his home today and he did make a vague suicidal statement to staff. However, today upon assessment, he clearly denies any intent or plan to harm himself. He has no history of suicide attempt and he is voicing plans for the future. I recommend that his citalopram be restarted at 20 mg and titrated as needed. He is agreeable to outpatient counseling, which I recommend he restart upon discharge. Thank you for this consultation. If you have any questions, I can be reached at [phone]. [facility] SYSTEMMarcio
[2018-05-03] MEDS: CITALOPRAM HYDROBROM 20 MG TAB PO SCH (08:52)
[2018-05-03] MEDS: PANTOPRAZOLE SOD 40 MG TABEC PO SCH ×2 (08:52→21:31)
[2018-05-03] MEDS: MULTIVITAMINS TAB PO SCH (08:52)
[2018-05-03 10:57] VITALS: BP 137/90
--- NOTE | 2018-05-03 11:39 | Hospitalist Progress Note ---
Subjective Progress Notes Subjective He has complaints of suicidal thoughts this morning. He states, "I am sick of laying in a coffin" "I would be better off ". Patient Complains of: Cardiovascular: No: Chest Pain Respiratory: No: Shortness of Breath Physical Exam Vital Signs Date Time Temp Pulse Resp B/P (MAP) Pulse Ox O2 Delivery O2 Flow Rate FiO2 05/03/18 10:57 97.4 83 18 137/90 (106) 92 Room Air 05/03/18 03:28 1.0 Intake and Output 05/03/18 00:59 Intake Total 4327 ml Output Total 615 ml Balance 3712 ml Intake Oral 2980 ml IV Total 1347 ml Output Urine Total 615 ml # Voids 12 # Bowel Movements 1 General Appearance: Alert, Awake, No Acute Distress, Afebrile Neuro: No Gross deficits Cardiovascular: Regular Rate and Rhythm Respiratory: No Respiratory Distress, Clear to Auscultation GI: Soft and Non-Tender Extremities: Warm, Perfused; No Edema Psych: Alert & Oriented X3, Other (He has suicidal thoughts) Result Diagram: 05/03/1851405/03/18514 Monitor Interpretation: Normal Sinus Rhythm Assessment and Plan Problems: (1) Weakness Status: Acute Assessment & Plan: Likely due to recent acute medical illness as well as poor oral intake resulting in protein malnutrition/multiple electrolyte abnormalities. PT/OT. (2) Hypomagnesemia Status: Acute Assessment & Plan: Most likely due to poor oral intake. Improved/resolved with IV replacement. (3) Hypokalemia Status: Acute Assessment & Plan: Most likely due to poor oral intake. Resolved with oral/IV replacement. Watch labs. (4) Hypocalcemia Status: Acute Assessment & Plan: Most likely due to poor intake. Improved with supplements. Continue Vit D plus calcium. Corrects to mildly low for albumin. (5) Peptic ulcer disease Status: Chronic Assessment & Plan: With recent GI bleed. The patient was hospitalized at [facility] and had a laparotomy (yoselyn now removed - no dehiscence). Awaiting record request. He has not been taking PPI therapy since discharge - he is now on pantoprazole. (6) HTN (hypertension) Status: Chronic Assessment & Plan: He reports taking lisinopril/HCTZ in the past. He is currently on no meds. BP is acceptable. Will monitor. He may be improved due to alcohol cessation. (7) GERD (gastroesophageal reflux disease) Status: Chronic Assessment & Plan: Currently on pantoprazole. (8) Depression Status: Chronic Assessment & Plan: He has been on citalopram in the past. Made some concerning statements. Psych consult ordered, recommend restart citalopram at 20mg. He plans to go to [facility] after cleared medically. Probable tomorrow. (9) History of alcohol use Status: Resolved Assessment & Plan: The patient states he has not had a drink since his stay at [facility]. His alcohol level on admission was <10. (10) Chronic back pain Status: Chronic Assessment & Plan: It appears by his external med history that his mail order pharmacy sent him an RX for meloxicam at the end of March. We will certified substance abuse counselor him not to take this medication at home due to recent GI bleeding. (11) Anemia due to blood loss Status: Chronic Assessment & Plan: Most likely due to recent UGI bleeding requiring surgical repair (records pending) and possibly recent poor nutrition. Watch closely. Exam Sepsis Risk: No Definite Risk KONRAD GAINES PHYSICAL SCIENTIST May 03, 2018 11:39
[2018-05-03 12:51] LABS: PLATELET COUNT, AUTOMATED 190 K/uL (150-450)
--- NOTE | 2018-05-03 13:33 | SLP EVALUATION SUMMARY REPORT ---
INITIAL SPEECH THERAPY EVALUATION REPORT Cognitive Linguistic Assessment Patient Name: Rui Mcgarry Date of Evaluation: 05/03/2018 Patient : 1950 Clinician: Sunita Burgos M.S., CCC-STEAM BOX TENDER Treatment Dx: Mild to moderate cognitive linguistic deficits BACKGROUND The patient is a 68 year old male admitted to [facility] w/ complaints of tingling in his chest and arm, generalized weakness, poor balance, and memory deficits. He recently experienced a bleeding ulcer requiring life flight to [facility] for laparotomy. He does not recall details of his stay there. His chart indicates recommendation to receive home health services following hospitalization at [facility]; however, this did not occur. The pt was unable to get to his kitchen or bathroom, unable to reach his medications, he was not eating, and was using bucket in place of a toilet. The pt also presents with history of heavy alcohol use. He resides alone with his dog in a tri-level home. An ST evaluation was ordered to analyze cognitive linguistic status and assist in developing recommendations for a safe and successful discharge. LANGUAGE/COGNITION The Pease Cognitive Assessment (MOCA), Version 7.3, was administered with the following results: -MOCA Total Score (TS): 21/30 = mild to moderate cognitive impairment -Cognitive Domains Demonstrating Deficits: short term memory, working memory, executive function, thought organization, semantic fluency. -Cognitive Domains Demonstrating Strength: visuospatial skills, language, attention, orientation. Overall the pt presents with mild to moderate cognitive communicative deficits most notably characterized by difficulty w/ short-term and working memory. The pt also exhibited decreased thought organization with sudden conversational tangents and difficulty recalling train of thought. Memory deficits were further apparent during informal interview procedures with difficulty remembering most recent meal, hospitalization course, and medication regimen. The pt appeared highly confused and overwhelmed about prior conversations with staff members regarding discharge recommendations and insurance coverage for receipt of home health services. Confusion resulted in intermittent agitation and elevated voice. However, the pt responded well to efforts to build rapport with alleviated agitation/frustration. Reduction was noted in insight re: areas of physical impairment and barriers to discharge. Pt w/ difficulty endorsing elevated need for assistance w/ ADL/IADL activities, and judgement/insight appeared negatively impacted by strong desire to return to home environment. Relative areas of strength were noted during tasks requiring sustained attention, alternating attention, orientation, language, and visuospatial/construction skills. Results indicate the patient may demonstrate difficulty participating in the following IADL tasks: Recall of medication regimen Appointment scheduling/coordination/attendance Remembering to pay bills on time Foresight of environmental obstacles/hazards Analysis and appropriate response to signs/symptoms of medical complications Based on this pts complex social and medical history paired with underlying cognitive linguistic deficits, 24/7 supervision is recommended to optimize safety for ADLs, IADLs, and medical care. If unable to obtain 24/7 support, long-term care placement is recommended. Recommendations were discussed with the pt at the time of evaluation; met with a fair amount of skepticism and resistance. Of note, the pt also expressed suicidal ideations during evaluation encounter (Give me a gun and Ill be much better This is basically a coffin). This is further reflected per charting and staff report. A behavioral health consult is recommended. RECOMMENDATIONS - Acute ST 3x/wk - If unable to obtain 24/7 support, long-term subacute placement is recommended - Behavioral health consult PROGNOSIS: Guarded. Aware of memory deficits, requires encouragement to participate. PLAN OF CARE Short Term Goals 1. The patient will utilize external memory strategies (e.g., written lists, wall signage, calendars) to support recall of 3/4 functional facts when provided with min verbal/visual cues to support capacity for new learning, promote safety, and minimize cognitive overload. 2. The patient will utilize internal memory strategies to promote retention of 2/3 items embedded within a functional activity for improved working memory and completion of ADL/IADLs. Long-Term Goals 1. The patient will demonstrate functional cognitive communication status for safety and maximized independence in d/c environment w/ appropriate access to home and community resources. Thank you for this referral. Please call [phone] Sunita Burgos M.S., CCC-STEAM BOX TENDER [*] KETAN
[2018-05-03 15:38] VITALS: BP 132/99
[2018-05-03 19:10] VITALS: BP 120/84
[2018-05-03 23:00] VITALS: BP 142/99
[2018-05-04 03:31] VITALS: BP 152/104
[2018-05-04 07:45] VITALS: BP 148/99
[2018-05-04] MEDS: CITALOPRAM HYDROBROM 20 MG TAB PO SCH (09:00)
[2018-05-04] MEDS: CALCIUM CARBONATE/VITAMIN D3 PO SCH (09:00)
[2018-05-04] MEDS: MULTIVITAMINS TAB PO SCH (09:00)
[2018-05-04] MEDS: PANTOPRAZOLE SOD 40 MG TABEC PO SCH (09:00)
[2018-05-04 10:43] LABS: PLATELET COUNT, AUTOMATED 209 K/uL (150-450)
[2018-05-04] MEDS ORDERED: MAGNESIUM SUL* 4 GM/100 ML BAG 100 ML IVPB ONE (11:30)
[2018-05-04 11:45] VITALS: BP 113/84
--- NOTE | 2018-05-04 13:10 | Medical Nutrition Therapy ---
Nutrition Anthropometrics Height (Inches): 65.00 Height (Calculated Centimeters: 165.698204 Weight (Pounds): 224 Weight (Calculated Kilograms): 101.718 BMI: 37.3 Rahul Nutrition Score: Adequate Rahul Nutrition Risk Score: 20 Dietary Referral Nutrition Risk Factors: Unplanned Loss >10lbs Nutrition Risk Comment: Physical Findings Physical Appearance: Obese BMI 30-39 Skin Appearance Skin Appearance: Edema Edema Location Modifier: Right Edema Location: Lower Extremity Type of Edema: Degree of Edema: 1+ Gastrointestinal Symptoms GI Symtoms: Tube Present: Bowel Sounds: Recent Bowel Pattern: Stool Characteristics: Nutritional Diagnosis Nutritional Risk Acuity 1: Malnutrition Nutritional Risk Acuity 2: Unintended Wt Loss >5%/mo Past Medical History: Inguinal hernia repair, spinal surgery, repair of rotator cuff, Chronic back pain, alcohol use, GENERALIZED ANXIETY DISORDER, Depression, BPH, GERD, Peptic ulcer disease with hemorrhage, HTN, Flexion contractures Nutritional Acuity: 1-High Nutrition Diagnosis: Inadequate Food Intake Nutrition Etiology: Physiological Causes Nutrition Problem/Etiology/Sym: AEB pt reported unable to get to kitchen to eat, alb 2.3, Mg 1.2 Diet Type: Diet as Tolerated JACKLYN/REG Nutrition Intervention: Cont diet as ordered Additional Diet Restrictions: PUT PROTEIN POWDER IN APPROPRIATE FOODS Diet Comment To [facility]: PROVIDE NUTR SUPPLMENT WITH EACH MEAL. Nutrition Monitoring & Eval Nutrition Goals: Eat 75-100% Meal Nutrition Follow-Up: Poor Intake RD Patient Assessment Time: [address] Assessment Type: RD Assessment Patient Nutrition Acuity: 1-High Follow Up Date: May 07, 2018 Nutritional Comment: 04/30/18 Pt admitted for weakness, hypo,calcemia, hypokalemia, hypomagnesemia. Low H/H, Ca+ 6.6, Alb 2.3, BNP 312. Class II obesity with BMI of 37.3. Receiving JACKLYN with no reports of intake. Follow labs, intake, etc. -DRT 05/04 Pt with dx malnutrition. Pt was home and unable to get to kitchen so had not been eating. Wt down 10% from stated wt of 250# in October 2017. Intake averge 26%. Will provide nutr supplments TID. Pt making suicidal statement which may be affecting intake. Alb cont low at 2.3. Phos WNR, MG low at 1.2. Cont to monitor intake and for s/s refeeding syndrome. MISHEL SAEZ May 04, 2018 13:10
--- NOTE | 2018-05-04 13:56 | Hospitalist Depart ---
Discharge Summary Reason for Hosp/Final Diag: (1) Weakness Status: Acute Hospital Course & Plan: Likely due to recent acute medical illness as well as poor oral intake resulting in protein malnutrition/multiple electrolyte abnormalities. He has been refusing physical therapy, however, he has been able to walk to bathroom without difficulty with a walker. (2) Hypomagnesemia Status: Acute Hospital Course & Plan: Most likely due to poor oral intake. Improved/resolved with IV replacement. (3) Hypokalemia Status: Acute Hospital Course & Plan: Most likely due to poor oral intake. Resolved with oral/IV replacement. (4) Hypocalcemia Status: Acute Hospital Course & Plan: Most likely due to poor intake. Improved with sup plements. Continue Vit D plus calcium. (5) Peptic ulcer disease Status: Chronic Hospital Course & Plan: With recent GI bleed. The patient was hospitalized at [facility] and had a laparotomy (yoselyn now removed - no dehiscence). Awaiting record request. He has not been taking PPI therapy since discharge - he is now on pantoprazole. (6) HTN (hypertension) Status: Chronic Hospital Course & Plan: He reports taking lisinopril/HCTZ in the past. He is currently on no meds. BP is acceptable. Will monitor. He may be improved due to alcohol cessation. (7) GERD (gastroesophageal reflux disease) Status: Chronic Hospital Course & Plan: Currently on pantoprazole. (8) Depression Status: Chronic Hospital Course & Plan: He has been on citalopram in the past. Made some concerning statements. Psych consult ordered, recommend restart citalopram at 20mg. He will be transferred to [facility] for continuation of care. Dr. Dwain campuzano ccepted this patient to [facility]. (9) History of alcohol use Status: Resolved Hospital Course & Plan: The patient states he has not had a drink since his stay at [facility]. His alcohol level on admission was <10. (10) Chronic back pain Status: Chronic Hospital Course & Plan: It appears by his external med history that his mail order pharmacy sent him an RX for meloxicam at the end of March. We will general counsel him not to take this medication at home due to recent GI bleeding. (11) Anemia due to blood loss Status: Chronic Hospital Course & Plan: Most likely due to recent UGI bleeding requiring surgical repair (records pending) and possibly recent poor nutrition. Improved with PPI. Departure Latest Vital Signs Vital Signs 05/03/18 05/04/18 23:00 11:45 Temp 98.2 Pulse 84 Resp 18 B/P (MAP) 113/84 (94) Pulse Ox 96 O2 Delivery Room Air O2 Flow Rate 1.0 Weight (Pounds): 224 Weight (Ounces): 4.0 Result Diagram: 05/04/18 1025 05/04/18 1025 Condition: Improved Discharge: [facility] Discharge Instructions Home Meds Discontinued Reported Medications Topiramate (TOPIRAMATE) 25 Mg Tablet, 25 MG PO BID 04/30/18 Gabapentin (GABAPENTIN) 300 Mg Capsule, 100 MG PO TID, CAPSULE 04/30/18 Pantoprazole Sodium (PANTOPRAZOLE SODIUM) 40 Mg Tablet.dr, 40 MG PO QDAY, TAB.SR 04/30/18 Meloxicam (MELOXICAM) 7.5 Mg Tablet, 7.5 MG PO QDAY 04/30/18 Omeprazole Magnesium (PRILOSEC OTC) 20 Mg Tablet.dr, 1 TAB PO QDAY, TAB 04/04/18 Lisinopril/Hydrochlorothiazide (LISINOPRIL-HCTZ 20-12.5 MG TAB) 1 Each Tablet, 1 EACH PO BID 05/06/17 Citalopram Hydrobromide (CITALOPRAM HBR) 40 Mg Tablet, QDAY 04/30/17 Aspirin (Aspirin) 81 Mg Tablet.dr, 81 MG PO DAILY, 0 Refills 10/05/10 Diet: Regular Activity: As Tolerated, With Walker Copies to: SIS ALDRICH DO ; Venous Thromboembolism Antithrombotics Is Pt On Any Antithrombotics?: No KONRAD GAINES TRANSITION MGR May 04, 2018 13:56
[2018-05-05] MEDS ORDERED: MELO-205 PO (13:17)
[2018-05-05] MEDS ORDERED: GABA-547 PO (13:17)
[2018-05-05] MEDS ORDERED: PANT40TA65 PO (13:17)
[2018-05-05] MEDS ORDERED: CITA-156 PO (15:21)
[2018-05-05] MEDS ORDERED: OSCAL D PO (15:22)
[2018-05-05] MEDS ORDERED: MULT-1379 PO (15:23)
[2018-05-05] MEDS ORDERED: HYDR25CA83 PO (15:23)
[2018-05-05] MEDS ORDERED: PANT40SU3 PO (15:23)
[2018-05-05] MEDS ORDERED: OXYGENHOME INH (15:24)
== END 2018-05-04 14:26 | DRG 641 ==
LOC: ER 13:06 → MED 18:00
PROVIDERS: ADMIT Internal Medicine; ATTEND Internal Medicine
DX: E83.42 Hypomagnesemia (principal); E46 Unspecified protein-calorie malnutrition; E87.6 Hypokalemia; E83.51 Hypocalcemia; I10 Essential (primary) hypertension; K21.9 Gastro-esophageal reflux disease without esophagitis; R53.1 Weakness; K27.7 Chronic peptic ulcer, site unspecified, without hemorrhage or perforation; G89.29 Other chronic pain; D50.0 Iron deficiency anemia secondary to blood loss (chronic); N40.0 Benign prostatic hyperplasia without lower urinary tract symptoms; F10.11 Alcohol abuse, in remission; F41.8 Other specified anxiety disorders; Y90.0 Blood alcohol level of less than 20 mg/100 ml; Z81.8 Family history of other mental and behavioral disorders; Z68.37 Body mass index [BMI] 37.0-37.9, adult; Z74.8 Other problems related to care provider dependency
CPT/HCPCS: 36415; 71045; 80305; 80320; 81001; 82040; 82140; 82247; 82274; 82310; 82374; 82435; 82565; 82947; 83735; 83880; 84075; 84100; 84132; 84155; 84295; 84443; 84450; 84460; 84484; 84520; 85025; 85610; 85730; 86850; 86900; 86901; 93005; 96361; 96365; 96368; 97161; 99285; J0610; J3475; J3480; J7040; J7050

== ENCOUNTER → 2018-04-30 | Outpatient (CLI) | payer MEDICARE, OTHER ==
[~2018-04-30] MED LIST changes: +ALPR-429 PO; +CITA-145 PO; +CITA-156 PO; +Calcium Carbonate/Vitamin D3 PO; +GABA-547 PO; +GABA-549 PO; +HYDR25CA83 PO; +LISI-362 PO; +LISI5TAB25 PO; +MELA3TAB31 PO; +MELO-205 PO; +MULT-1379 PO; +OSCAL D PO; +OXYGENHOME INH; +PANT40SU3 PO; +PANT40TA65 PO; +TOPI-23 PO
[2018-05-01 13:25] VITALS: BMI 37.3
== END ==
LOC: AMB 11:59
PROVIDERS: ATTEND Nurse Practitioner
DX: R07.9 Chest pain, unspecified (principal); R09.02 Hypoxemia; I10 Essential (primary) hypertension; I48.91 Unspecified atrial fibrillation
CPT/HCPCS: A0425; A0427

== ENCOUNTER 2018-05-04 14:26 | Inpatient (IN) | payer MEDICARE, OTHER ==
[2018-05-01 13:25] VITALS: Ht 170.2 cm; Wt 99.8 kg
[~2018-05-04] VITALS: Ht 170.2 cm; Wt 99.8 kg
[~2018-05-04 14:26] MED LIST changes: +GABA-549 PO; +MELO-205 PO; +PANT40TA65 PO; +TOPI-23 PO
[2018-05-04 15:35] VITALS: BP 150/92
[2018-05-04] MEDS ORDERED: ACETAMINOPHEN 325 MG TAB PO PRN (16:13)
[2018-05-04] MEDS ORDERED: CITALOPRAM HYDROBROM 20 MG TAB PO SCH (16:13)
[2018-05-04] MEDS ORDERED: MULTIVITAMINS TAB PO SCH (16:13)
[2018-05-04] MEDS: CALCIUM CARBONATE/VITAMIN D3 PO SCH (18:08)
[2018-05-04] MEDS: PANTOPRAZOLE SOD 40 MG TABEC PO SCH (20:41)
[2018-05-04] MEDS ORDERED: hydrOXYzine 25 MG TAB PO ONE (22:30)
[2018-05-04] MEDS ORDERED: hydrOXYzine PAMOATE 25 MG CAP PO PRN (23:00)
[2018-05-05 00:18] VITALS: BP 159/95
[2018-05-05 06:20] LABS: PLATELET COUNT, AUTOMATED 189 K/uL (150-450)
[2018-05-05] MEDS: CALCIUM CARBONATE/VITAMIN D3 PO SCH (08:11)
[2018-05-05] MEDS: PANTOPRAZOLE SOD 40 MG TABEC PO SCH (08:12)
--- NOTE | 2018-05-05 11:43 | Miscellaneous Provider Note ---
Miscellaneous Provider Note Note Reviewed labs as a drop in Hgb/Hct was noted on labs today. Repeat lab shows Hgb/Hct to be stable. He has chronic abnormalities in his lab work, which are slowly improving. He does not appear to have any acute problems which would necessitate further investigation at this time. If he was to be discharged, he would need close follow up with his primary care and would most likely need help with maintaining his nutritional status and his home/apartment. I would also recommend he not have his lisinopril or HCTZ restarted at this time. He does have modest elevation of his BPs, but would prefer to monitor for now and allow his primary care physician to decide on initiation of any therapy. JESSY OVALLE MD May 05, 2018 11:43
[2018-05-05] MEDS ORDERED: MELO-205 PO (13:17)
[2018-05-05] MEDS ORDERED: PANT40TA65 PO (13:17)
[2018-05-05] MEDS ORDERED: GABA-547 PO (13:17)
[2018-05-05] MEDS ORDERED: CITA-156 PO (15:21)
[2018-05-05] MEDS ORDERED: OSCAL D PO (15:22)
[2018-05-05] MEDS ORDERED: MULT-1379 PO (15:23)
[2018-05-05] MEDS ORDERED: HYDR25CA83 PO (15:23)
[2018-05-05] MEDS ORDERED: PANT40SU3 PO (15:23)
[2018-05-05] MEDS ORDERED: OXYGENHOME INH (15:24)
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
== END 2018-05-05 15:35 | disposition home health service (06) | DRG 881 ==
LOC: BHS 14:26
PROVIDERS: ADMIT Psychiatry & Neurology Psychiatry; ATTEND Psychiatry & Neurology Psychiatry
DX: F43.21 Adjustment disorder with depressed mood (principal); R45.851 Suicidal ideations; F06.31 Mood disorder due to known physiological condition with depressive features; E83.42 Hypomagnesemia; E83.51 Hypocalcemia; E87.6 Hypokalemia; D64.9 Anemia, unspecified; I10 Essential (primary) hypertension; G47.34 Idiopathic sleep related nonobstructive alveolar hypoventilation; F43.12 Post-traumatic stress disorder, chronic; R53.1 Weakness; K21.9 Gastro-esophageal reflux disease without esophagitis; Z88.8 Allergy status to other drugs, medicaments and biological substances; Z62.810 Personal history of physical and sexual abuse in childhood; Z62.811 Personal history of psychological abuse in childhood
CPT/HCPCS: 36415; 82040; 82247; 82310; 82374; 82435; 82565; 82947; 83735; 83880; 84075; 84132; 84155; 84295; 84450; 84460; 84520; 85014; 85018; 85025; Q0177

== ENCOUNTER 2018-05-07 13:08 | Inpatient (IN) | payer MEDICARE, OTHER ==
[~2018-05-07] VITALS: Ht 172.7 cm; Wt 97.5 kg
[~2018-05-07 13:08] MED LIST changes: -ALPR-429 PO; -CITA-145 PO; -Calcium Carbonate/Vitamin D3 PO; -LISI-362 PO; -LISI5TAB25 PO; -MELA3TAB31 PO
[2018-05-07 15:02] LABS: PLATELET COUNT, AUTOMATED 268 K/uL (150-450)
--- NOTE | 2018-05-07 15:49 | EKG ---
FACILITY: [facility] PATIENT NAME: KERRI GARCIA : [id number] MR: [id number] V: [id number] EXAM DATE: ORDERING PHYSICIAN: ANDREW RUIZ TECHNOLOGIST: Test Reason : weakness Blood Pressure : / mmHG Vent. Rate : 091 BPM Atrial Rate : 091 BPM P-R Int : 150 ms QRS Dur : 090 ms QT Int : 380 ms P-R-T Axes : 017 039 027 degrees QTc Int : 467 ms Sinus rhythm Artifact in virtually all leads - repeat if needed Confirmed by JESSY OVALLE ([id number] on 05/07/2018 7:49:38 PM Referred By: Confirmed By:JESSY OVALLE
[2018-05-07] MEDS ORDERED: cefTRIAXone 1 GM VIAL IVP ONE (16:35)
--- NOTE | 2018-05-07 18:45 | ER Report ---
History and Physical Time Seen By MD: 14:00 Hx. of Stated Complaint: WEAKNESS, FALL AT APPROX 1030 AND WAS ON FLOOR FOR APPROX 2 HRS. DOES NOT FEEL SAFE LIVING AT HOME DUE TO WEAKNESS. HPI/ROS History of failure to thrive. He was sitting on the toilet today and after urinating he was too weak to get up. He subsequently fell forward and was again too weak to get up. He crawled to his bedroom where he was able to call p [employer]. And asked why he is week he says that he barely takes any by mouth. He is in is that he states his bedroom is on the 2nd for an food on the 1st floor. He does not eat food regularly, because he states he is afraid he was going to fall on the steps. Otherwise he is no acute issues. Paramedics were extremely concerned about the conditions of the house undescribed feces on the floor throughout the house. Remainder of the 14 system rev: Yes Allergies: Coded Allergies: bupropion (Verified Allergy, Mild, 05/07/18) Home Meds Reported Medications Oxygen (OXYGEN) Inha, 2 L INH QHS, L 05/05/18 Hydroxyzine Pamoate (VISTARIL) 25 Mg Capsule, 50 MG PO QHS, CAPSULE 05/05/18 Multivits,Th W-Fe,Other Min (THERA-M) 1 Each Tablet, 1 EACH PO QDAY 05/05/18 Pantoprazole Sodium (PROTONIX) 40 Mg Granpkt.dr, 40 MG PO BID, PACK 05/05/18 [Oscal D] No Conflict Check, 1 EA PO BIDBS 05/05/18 Citalopram Hydrobromide (CELEXA) 20 Mg Tablet, 20 MG PO QDAY, #5 TAB 05/05/18 Discontinued Reported Medications Pantoprazole Sodium (PANTOPRAZOLE SODIUM) 40 Mg Tablet.dr, 40 MG PO BID, TAB.SR 05/05/18 Meloxicam (MELOXICAM) 7.5 Mg Tablet, 1-2 EA PO QDAY 05/05/18 Gabapentin (GABAPENTIN) 100 Mg Capsule, 100 MG PO TID, CAPSULE 05/05/18 Topiramate (TOPIRAMATE) 25 Mg Tablet, 25 MG PO BID 04/30/18 Gabapentin (GABAPENTIN) 300 Mg Capsule, 100 MG PO TID, CAPSULE 04/30/18 Pantoprazole Sodium (PANTOPRAZOLE SODIUM) 40 Mg Tablet.dr, 40 MG PO QDAY, TAB.SR 04/30/18 Meloxicam (MELOXICAM) 7.5 Mg Tablet, 7.5 MG PO QDAY 04/30/18 Omeprazole Magnesium (PRILOSEC OTC) 20 Mg Tablet.dr, 1 TAB PO QDAY, TAB 04/04/18 Lisinopril/Hydrochlorothiazide (LISINOPRIL-HCTZ 20-12.5 MG TAB) 1 Each Tablet, 1 EACH PO BID 05/06/17 Citalopram Hydrobromide (CITALOPRAM HBR) 40 Mg Tablet, QDAY 04/30/17 Aspirin (Aspirin) 81 Mg Tablet.dr, 81 MG PO DAILY, 0 Refills 10/05/10 Reviewed Nurses Notes: Yes Old Medical Records Reviewed: Yes Hx Smoking: No Smoking Status: Never Smoker Exposure to Second Hand Smoke?: No Hx Substance Use Disorder: Yes Hx Alcohol Use: Yes Constitutional Vital Sign - Last 24 Hours 05/07/18 05/07/18 13:10 14:19 Pulse 101 102 Resp 18 16 B/P (MAP) 103/84 102/79 (87) Pulse Ox 99 O2 Delivery Nasal Cannula Physical Exam General Appearance: The patient is alert, has no immediate need for airway protection and no signs of toxicity. Eyes: Pupils equal and round no pallor or injection. ENT, Mouth: Mucous membranes are moist. Respiratory: There are no retractions, lungs are clear to auscultation. Cardiovascular: Regular rate and rhythm. Gastrointestinal: Abdomen is soft and non tender, no masses, bowel sounds normal. Neurological: Sensation and strength grossly intact Skin: Warm and dry, no rashes. Musculoskeletal: Neck is supple non tender. Extremities are nontender, nonswollen and have full range of motion. DIFFERENTIAL DIAGNOSIS: After history and physical exam differential diagnosis was considered for infection, traumatic injuries, failure to thrive Medical Decision Making Data Points Result Diagram: 05/07/18 1325 05/07/18 1325 Laboratory Hematology Test 05/07/18 13:25 05/07/18 15:46 Red Blood Count 3.05 M/uL (4.00-5.60) Mean Corpuscular Volume 95.7 fL (80.0-96.0) Mean Corpuscular Hemoglobin 30.8 pg (26.0-33.0) Mean Corpuscular Hemoglobin Concent 32.2 g/dL (32.0-36.0) Red Cell Distribution Width 17.7 % (11.5-14.5) Mean Platelet Volume 8.1 fL (7.2-11.1) Neutrophils (%) (Auto) 89.2 % (39.4-72.5) Lymphocytes (%) (Auto) 4.8 % (17.6-49.6) Monocytes (%) (Auto) 5.0 % (4.1-12.4) Eosinophils (%) (Auto) 0.0 % (0.4-6.7) Basophils (%) (Auto) 1.0 % (0.3-1.4) Nucleated RBC Relative Count (auto) 0.0 /100WBC Neutrophils # (Auto) 11.0 K/uL (2.0-7.4) Lymphocytes # (Auto) 0.6 K/uL (1.3-3.6) Monocytes # (Auto) 0.6 K/uL (0.3-1.0) Eosinophils # (Auto) 0.0 K/uL (0.0-0.5) Basophils # (Auto) 0.1 K/uL (0.0-0.1) Nucleated RBC Absolute Count (auto) 0.00 K/uL Peripheral Blood Smear No Y/N Sodium Level 135 mmol/L (137-145) Potassium Level 3.6 mmol/L (3.5-5.0) Chloride Level 100 mmol/L (98-107) Carbon Dioxide Level 28 mmol/L (22-30) Blood Urea Nitrogen 13 mg/dl (9-21) Creatinine 1.00 mg/dl (0.66-1.25) Glomerular Filtration Rate Calc > 60.0 Random Glucose 106 mg/dl (75-110) Calcium Level 8.0 mg/dl (8.4-10.2) Total Bilirubin 1.3 mg/dl (0.2-1.3) Aspartate Amino Transf (AST/SGOT) 31 U/L (0-35) Alanine Aminotransferase (ALT/SGPT) 35 U/L (0-56) Alkaline Phosphatase 128 U/L (0-126) Troponin I < 0.012 ng/ml Total Protein 6.1 g/dl (6.3-8.2) Albumin 2.4 g/dl (3.5-5.0) Urine Color Radha Urine Clarity Cloudy Urine pH 7.0 pH (4.8-9.5) Urine Specific [place] 1.013 Urine Protein 30 mg/dL (NEGATIVE) Urine Glucose (UA) Negative mg/dL (NEGATIVE) Urine Ketones Negative mg/dL (NEGATIVE) Urine Blood Small (NEGATIVE) Urine Nitrite Negative (NEGATIVE) Urine Bilirubin Negative (NEGATIVE) Urine Urobilinogen 4.0 mg/dL (0.2-1.9) Urine Leukocyte Esterase Moderate (NEGATIVE) Urine RBC 2-4 /HPF (0-2/HPF) Urine WBC 75-100 /HPF (0-5/HPF) Urine WBC Clumps Present /HPF Urine Squamous Epithelial Cells None /LPF (</=FEW) Urine Bacteria Many /HPF (NONE-FEW) Urine Mucus None /HPF (NONE-FEW) Chemistry Test 05/07/18 13:25 05/07/18 15:46 White Blood Count 12.4 k/uL (4.5-11.0) Red Blood Count 3.05 M/uL (4.00-5.60) Hemoglobin 9.4 g/dL (14.0-18.0) Hematocrit 29.2 % (42.0-52.0) Mean Corpuscular Volume 95.7 fL (80.0-96.0) Mean Corpuscular Hemoglobin 30.8 pg (26.0-33.0) Mean Corpuscular Hemoglobin Concent 32.2 g/dL (32.0-36.0) Red Cell Distribution Width 17.7 % (11.5-14.5) Platelet Count 268 K/uL (150-450) Mean Platelet Volume 8.1 fL (7.2-11.1) Neutrophils (%) (Auto) 89.2 % (39.4-72.5) Lymphocytes (%) (Auto) 4.8 % (17.6-49.6) Monocytes (%) (Auto) 5.0 % (4.1-12.4) Eosinophils (%) (Auto) 0.0 % (0.4-6.7) Basophils (%) (Auto) 1.0 % (0.3-1.4) Nucleated RBC Relative Count (auto) 0.0 /100WBC Neutrophils # (Auto) 11.0 K/uL (2.0-7.4) Lymphocytes # (Auto) 0.6 K/uL (1.3-3.6) Monocytes # (Auto) 0.6 K/uL (0.3-1.0) Eosinophils # (Auto) 0.0 K/uL (0.0-0.5) Basophils # (Auto) 0.1 K/uL (0.0-0.1) Nucleated RBC Absolute Count (auto) 0.00 K/uL Peripheral Blood Smear No Y/N Glomerular Filtration Rate Calc > 60.0 Calcium Level 8.0 mg/dl (8.4-10.2) Total Bilirubin 1.3 mg/dl (0.2-1.3) Aspartate Amino Transf (AST/SGOT) 31 U/L (0-35) Alanine Aminotransferase (ALT/SGPT) 35 U/L (0-56) Alkaline Phosphatase 128 U/L (0-126) Troponin I < 0.012 ng/ml Total Protein 6.1 g/dl (6.3-8.2) Albumin 2.4 g/dl (3.5-5.0) Urine Color Radha Urine Clarity Cloudy Urine pH 7.0 pH (4.8-9.5) Urine Specific [place] 1.013 Urine Protein 30 mg/dL (NEGATIVE) Urine Glucose (UA) Negative mg/dL (NEGATIVE) Urine Ketones Negative mg/dL (NEGATIVE) Urine Blood Small (NEGATIVE) Urine Nitrite Negative (NEGATIVE) Urine Bilirubin Negative (NEGATIVE) Urine Urobilinogen 4.0 mg/dL (0.2-1.9) Urine Leukocyte Esterase Moderate (NEGATIVE) Urine RBC 2-4 /HPF (0-2/HPF) Urine WBC 75-100 /HPF (0-5/HPF) Urine WBC Clumps Present /HPF Urine Squamous Epithelial Cells None /LPF (</=FEW) Urine Bacteria Many /HPF (NONE-FEW) Urine Mucus None /HPF (NONE-FEW) Urinalysis Test 05/07/18 15:46 Urine Color Radha Urine Clarity Cloudy Urine pH 7.0 pH (4.8-9.5) Urine Specific [place] 1.013 Urine Protein 30 mg/dL (NEGATIVE) Urine Glucose (UA) Negative mg/dL (NEGATIVE) Urine Ketones Negative mg/dL (NEGATIVE) Urine Blood Small (NEGATIVE) Urine Nitrite Negative (NEGATIVE) Urine Bilirubin Negative (NEGATIVE) Urine Urobilinogen 4.0 mg/dL (0.2-1.9) Urine Leukocyte Esterase Moderate (NEGATIVE) Urine RBC 2-4 /HPF (0-2/HPF) Urine WBC 75-100 /HPF (0-5/HPF) Urine WBC Clumps Present /HPF Urine Squamous Epithelial Cells None /LPF (</=FEW) Urine Bacteria Many /HPF (NONE-FEW) Urine Mucus None /HPF (NONE-FEW) ED Course/Re-evaluation ED Course Acute on chronic failure to thrive. Also with a UTI today. Could be contributing to his acute exacerbation of generalized weakness. And Adult Protective Services consult was placed to evaluate living conditions at the home. Social work at the hospital is involved as well. He will be admitted to the hospital for continued antibiotics for his UTI as well as failure to thrive. Decision to Disposition Date: May 07, 2018 Decision to Disposition Time: 18:44 Depart Departure Latest Vital Signs Vital Signs Date Time Temp Pulse Resp B/P (MAP) Pulse Ox O2 Delivery O2 Flow Rate FiO2 05/07/18 14:19 102 16 102/79 (87) 05/07/18 13:10 99 Nasal Cannula Impression: Primary Impression: Generalized weakness Condition: Improved Disposition: Admitted from ER Referrals: SIS ALDRICH DO (PCP) ANDREW RUIZ MD May 07, 2018 18:45
[2018-05-07 20:00] VITALS: BP 99/74
[2018-05-07 20:08] VITALS: BP 99/74
[2018-05-07] MEDS ORDERED: NS(*) 0.9% 1000 ML BAG 1,000 ML IV PRN (20:21)
[2018-05-07] MEDS ORDERED: ACETAMINOPHEN 325 MG TAB PO PRN (20:25)
--- NOTE | 2018-05-07 20:46 | History & Physical ---
History of Present Illness Chief Complaint Weak History of Present Illness 68yo male who was recently admitted with anemia, dehydration, multiple electrolyte abnormalities, recent UGI bleeding. He was discharged after a short stay on S unit. He states upon returning home he felt extremely weak. He was in the bathroom on the toilet and when he tried to arise his legs buckled and he fell. He denied any focal weakness. He denied any LOC. He denies any N/V/diarrhea, but has had poor appetite and little intake. He denies any dysuria or frequency. He denies any fevers or chills. He was evaluated in the ER and found to have possible UTI. He was recommended for admission. He did state he believes he is not able to care for himself in his current state and believes he may need to be in the senior living for at least a temporary stay for rehab. History Problems: (1) BPH (benign prostatic hyperplasia) Status: Chronic (2) Peptic ulcer disease with hemorrhage Status: Resolved (3) GENERALIZED ANXIETY DISORDER Status: Chronic (4) Hypokalemia Status: Resolved (5) Hypomagnesemia Status: Resolved (6) Hypocalcemia Status: Resolved (7) Depression Status: Chronic (8) HTN (hypertension) Status: Chronic (9) Chronic back pain Status: Chronic (10) History of alcohol use Status: Resolved (11) Anemia due to blood loss Status: Chronic (12) History of inguinal hernia repair Status: Resolved (13) Hx of spinal surgery Status: Resolved (14) H/O repair of rotator cuff Status: Resolved Home Meds Reported Medications Oxygen (OXYGEN) Inha, 2 L INH QHS, L 05/05/18 Hydroxyzine Pamoate (VISTARIL) 25 Mg Capsule, 50 MG PO QHS, CAPSULE 05/05/18 Multivits,Th W-Fe,Other Min (THERA-M) 1 Each Tablet, 1 EACH PO QDAY 05/05/18 Pantoprazole Sodium (PROTONIX) 40 Mg Marjorie.dr, 40 MG PO BID, PACK 05/05/18 [Oscal D] No Conflict Check, 1 EA PO BIDBS 05/05/18 Citalopram Hydrobromide (CELEXA) 20 Mg Tablet, 20 MG PO QDAY, #5 TAB 05/05/18 Discontinued Reported Medications Pantoprazole Sodium (PANTOPRAZOLE SODIUM) 40 Mg Tablet.dr, 40 MG PO BID, TAB.SR 05/05/18 Meloxicam (MELOXICAM) 7.5 Mg Tablet, 1-2 EA PO QDAY 05/05/18 Gabapentin (GABAPENTIN) 100 Mg Capsule, 100 MG PO TID, CAPSULE 05/05/18 Topiramate (TOPIRAMATE) 25 Mg Tablet, 25 MG PO BID 04/30/18 Gabapentin (GABAPENTIN) 300 Mg Capsule, 100 MG PO TID, CAPSULE 04/30/18 Pantoprazole Sodium (PANTOPRAZOLE SODIUM) 40 Mg Tablet.dr, 40 MG PO QDAY, TAB.SR 04/30/18 Meloxicam (MELOXICAM) 7.5 Mg Tablet, 7.5 MG PO QDAY 04/30/18 Omeprazole Magnesium (PRILOSEC OTC) 20 Mg Tablet.dr, 1 TAB PO QDAY, TAB 04/04/18 Lisinopril/Hydrochlorothiazide (LISINOPRIL-HCTZ 20-12.5 MG TAB) 1 Each Tablet, 1 EACH PO BID 05/06/17 Citalopram Hydrobromide (CITALOPRAM HBR) 40 Mg Tablet, QDAY 04/30/17 Aspirin (Aspirin) 81 Mg Tablet.dr, 81 MG PO DAILY, 0 Refills 10/05/10 Allergies: Coded Allergies: bupropion (Verified Allergy, Mild, 05/07/18) Patient History: FH: breast cancer MOTHER Hx Smoking: No Smoking Status: Never Smoker Exposure to Second Hand Smoke?: No Caffeine Intake: Coffee, Soda Caffeine/Cups Per Day: 3 Hx Alcohol Use: Yes Hx Substance Use Disorder: Yes Social Drug Use: Currently Social Drugs: Marijuana Review of Systems Constitutional: No Fever, No Chills Neurological: Weakness; No Syncope Eyes: No Vision Change, No Loss of Vision ENT: No Hearing Loss Cardiovascular: No Chest Pain, No Palpitations Respiratory: No Shortness of Breath, No Cough Gastrointestinal: No Nausea, No Vomiting, No Diarrhea, No Hematemesis, No Hematochezia, No Melena, No Abdominal Pain Genitourinary: No Dysuria, No Hematuria, No Urinary Incontinence Psychiatric: Depression, Anxiety Exam Vital Signs Vital Signs Date Time Temp Pulse Resp B/P (MAP) Pulse Ox O2 Delivery O2 Flow Rate FiO2 05/07/18 20:08 99.0 16 16 99/74 (82) 97 Room Air General Appearance: Alert, Awake Neuro: No Gross deficits Eyes: PERRLA ENT: Oropharynx Clear Neck: No Masses Cardiovascular: Regular Rate and Rhythm, No JVD Respiratory: Clear to Auscultation Chest: No Tenderness GI: Abd Soft and Non-Tender, Other (healing laparotomy scar) : No CVA Tenderness Extremities: Warm, Perfused, Edema (1+ RLE) Integumentary: Generalized Fragile Skin, Other (several abrasions/ecchymoses on extremities) Medical Decision Making Data Points Result Diagram: 05/07/18 1325 05/07/18 1325 Item Value Date Time Urine Mucus None /HPF 05/07/18 1546 Urine Bacteria Many /HPF H 05/07/18 1546 Urine Squamous Epithelial Cells None /LPF 05/07/18 1546 Urine WBC Clumps Present /HPF 05/07/18 1546 Urine WBC 75-100 /HPF 05/07/18 1546 Urine RBC 2-4 /HPF 05/07/18 1546 Urine Leukocyte Esterase Moderate H 05/07/18 1546 Urine Urobilinogen 4.0 mg/dL H 05/07/18 1546 Urine Bilirubin Negative 05/07/18 1546 Urine Nitrite Negative 05/07/18 1546 Urine Blood Small 05/07/18 1546 Urine Ketones Negative mg/dL 05/07/18 1546 Urine Glucose (UA) Negative mg/dL 05/07/18 1546 Urine Protein 30 mg/dL 05/07/18 1546 Urine Specific Hosmer 1.013 05/07/18 1546 Urine pH 7.0 pH 05/07/18 1546 Urine Clarity Cloudy 05/07/18 1546 Urine Color Radha 05/07/18 1546 Albumin 2.4 g/dl L 05/07/18 1325 Total Protein 6.1 g/dl L 05/07/18 1325 Troponin I < 0.012 ng/ml 05/07/18 1325 Alkaline Phosphatase 128 U/L H 05/07/18 1325 Alanine Aminotransferase (ALT/SGPT) 35 U/L 05/07/18 1325 Aspartate Amino Transf (AST/SGOT) 31 U/L 05/07/18 1325 Total Bilirubin 1.3 mg/dl 05/07/18 1325 Calcium Level 8.0 mg/dl L 05/07/18 1325 Assessment and Plan Problems: (1) UTI (urinary tract infection) Status: Acute Assessment & Plan: It appears he has an acute UTI, which is probably contributing to his weakness. Will admit for IV antibiotics with Rocephin. Cultures have been obtained in the ER. Will modify antibiotics based on results. (2) Generalized weakness Status: Acute Assessment & Plan: Most likely due to the acute UTI as well as pre-existing anemia, borderline nutrition. Will treat as above, give gentle IV fluids, supplement diet, watch closely. (3) Anemia due to blood loss Status: Chronic Assessment & Plan: Due to recent UGI bleed. He has been showing some slow improvements in his labs. Will continue supplements. (4) Peptic ulcer disease with hemorrhage Status: Resolved Assessment & Plan: He had recent UGI bleed, which required surgical intervention. Will continue his Protonix 40mg BID. (5) Depression Status: Chronic Assessment & Plan: Continue citalopram. (6) GENERALIZED ANXIETY DISORDER Status: Chronic Venous Thromboembolism Antithrombotics Is Pt On Any Antithrombotics?: No (recent UGI bleeding) Exam Sepsis Risk: No Definite Risk JESSY OVALLE MD May 07, 2018 20:46
[2018-05-07] MEDS: PANTOPRAZOLE SOD 40 MG TABEC PO SCH (21:54)
[2018-05-08] VITALS (7 sets, daily range): BP systolic 103–137; BP diastolic 57–94; Ht 172.7 cm; Wt 97.5 kg
[2018-05-08] MEDS: MELATONIN 3 MG TAB PO PRN (01:49)
[2018-05-08] MEDS ORDERED: LISI5TAB25 PO (02:55)
[2018-05-08] MEDS ORDERED: OMEP-218 PO (02:55)
[2018-05-08] MEDS ORDERED: LISI-362 PO (02:55)
[2018-05-08] MEDS ORDERED: ALPR-429 PO (02:55)
[2018-05-08] MEDS ORDERED: GABA-549 PO (02:59)
[2018-05-08 06:11] LABS: PLATELET COUNT, AUTOMATED 210 K/uL (150-450)
--- NOTE | 2018-05-08 08:12 | Hospitalist Progress Note ---
Subjective Progress Notes Subjective He reports doing well. He had BM last evening - no melena or blood noted. Physical Exam Vital Signs Date Time Temp Pulse Resp B/P (MAP) Pulse Ox O2 Delivery O2 Flow Rate FiO2 05/08/18 04:01 99.0 92 16 108/85 (93) 90 Room Air Intake and Output 05/08/18 06:59 Intake Total 240 ml Output Total 100 ml Balance 140 ml Intake Oral 240 ml Output Urine Total 100 ml # Voids 3 # Bowel Movements 4 General Appearance: Alert, Awake Cardiovascular: Regular Rate and Rhythm Respiratory: Clear to Auscultation GI: Soft and Non-Tender (BS present), Other (laparotomy incision healing) Result Diagram: 05/08/1853905/08/18539 Assessment and Plan Problems: (1) UTI (urinary tract infection) Status: Acute Assessment & Plan: This has probably been contributing to his weakness. He is currently on IV Rocephin. Cultures obtained in the ER are pending. Will modify antibiotics based on results. (2) Generalized weakness Status: Acute Assessment & Plan: Most likely due to the acute UTI as well as pre-existing anemia, borderline nutrition. Will treat as above, give gentle IV fluids, suppl ement diet, watch closely. (3) Anemia due to blood loss Status: Chronic Assessment & Plan: Due to recent UGI bleed. He had been showing some slow improvements in his lab, but Hgb/Hct dropped this AM - may be due to equilibration. Recheck lab later today. Will continue supplements. (4) Peptic ulcer disease with hemorrhage Status: Resolved Assessment & Plan: He had recent UGI bleed, which required surgical intervention. Will continue his Protonix 40mg BID. (5) Depression Status: Chronic Assessment & Plan: Continue citalopram. (6) GENERALIZED ANXIETY DISORDER Status: Chronic Exam Sepsis Risk: No Definite Risk JESSY OVALLE MD May 08, 2018 08:12
[2018-05-08] MEDS: KCL/NS* 20 MEQ/1000 ML PREMIX 1,000 ML IV SCH (09:10)
[2018-05-08] MEDS: MULTIVITAMINS TAB PO SCH (09:22)
[2018-05-08] MEDS: CALCIUM CARBONATE/VITAMIN D3 PO SCH ×2 (09:22→17:17)
[2018-05-08] MEDS: POTASSIUM CHL 10 MEQ TABCR PO SCH ×2 (09:22→17:18)
[2018-05-08] MEDS: CITALOPRAM HYDROBROM 20 MG TAB PO SCH (09:22)
[2018-05-08] MEDS: PANTOPRAZOLE SOD 40 MG TABEC PO SCH ×2 (09:22→20:15)
[2018-05-08] MEDS: cefTRIAXone(*) 1 GM VIAL 1 GM in NS(*) 0.9% 100 ML ADDVANT BAG 100 ML IVPB SCH (17:03)
[2018-05-09 03:53] VITALS: BP 116/81
[2018-05-09] MEDS: KCL/NS* 20 MEQ/1000 ML PREMIX 1,000 ML IV SCH ×2 (06:20→20:44)
[2018-05-09 06:47] LABS: PLATELET COUNT, AUTOMATED 232 K/uL (150-450)
[2018-05-09 07:58] VITALS: BP 136/96
--- NOTE | 2018-05-09 08:28 | Hospitalist Progress Note ---
Subjective Progress Notes Subjective No new complaints. Physical Exam Vital Signs Date Time Temp Pulse Resp B/P (MAP) Pulse Ox O2 Delivery O2 Flow Rate FiO2 05/09/18 07:58 97.7 77 12 136/96 (109) 93 Room Air Intake and Output 05/09/18 07:00 Intake Total 1636 ml Output Total 220 ml Balance 1416 ml Intake Oral 652 ml IV Total 984 ml Output Urine Total 220 ml # Voids 51 General Appearance: Alert, Awake, No Acute Distress Neuro: No Gross deficits Eyes: PERRLA Cardiovascular: Regular Rate and Rhythm Respiratory: Clear to Auscultation GI: Soft and Non-Tender Extremities: Warm, Perfused Psych: Appropriate Mood & Affect Result Diagram: 05/09/1854205/09/18542 Assessment and Plan Problems: (1) UTI (urinary tract infection) Status: Acute Assessment & Plan: This has probably been contributing to his weakness. He is currently on IV Rocephin. Cultures have grown Morganella morganii which is sensitive to the Rocephin. Will continue. (2) Generalized weakness Status: Acute Assessment & Plan: Most likely due to the acute UTI as well as pre-existing anemia, borderline nutrition. Will treat as above, give gentle IV fluids, supplement diet, watch closely. (3) Anemia due to blood loss Status: Chronic Assessment & Plan: Due to recent UGI bleed. He had been showing some slow improvements in his lab, but Hgb/Hct dropped 10/13 (likely spurious result). He continues to hold steady in the mid-8 range (hemoglobin). (4) Peptic ulcer disease with hemorrhage Status: Resolved Assessment & Plan: He had recent UGI bleed, which required surgical intervention. Will continue his Protonix 40mg BID. (5) Depression Status: Chronic Assessment & Plan: Continue citalopram. (6) GENERALIZED ANXIETY DISORDER Status: Chronic Time Spent on Plan of Care: < 30 min Exam Sepsis Risk: No Definite Risk HILARY OVALLE MD May 09, 2018 08:28
[2018-05-09] MEDS: POTASSIUM CHL 10 MEQ TABCR PO SCH ×2 (11:31→16:13)
[2018-05-09] MEDS: MULTIVITAMINS TAB PO SCH (11:31)
[2018-05-09] MEDS: CITALOPRAM HYDROBROM 20 MG TAB PO SCH (11:31)
[2018-05-09] MEDS: CALCIUM CARBONATE/VITAMIN D3 PO SCH ×2 (11:31→16:13)
[2018-05-09] MEDS: PANTOPRAZOLE SOD 40 MG TABEC PO SCH ×2 (11:31→20:44)
[2018-05-09 11:34] VITALS: BP 130/90
--- NOTE | 2018-05-09 13:41 | Antimicrobial Stewardship ---
Antimicrobial Time Out Antimicrobial Stewardship MD Service: Hospitalist Indications: UTI Antimicrobial Used CEFTRIAXONE 1G IV Q24H Start Date: May 07, 2018 Culture Results: Yes (MORGANELLA MORGANII) Eligible for PO Conversion Eligable for PO Conversion: No (FEVERS LATE EVENING 05/08) Reviewed with Provider Reviewed w/ Provider on Rounds: No Comments Comments Recommend continue ceftriaxone IV until afebrile 48hrs and clinically improved. Organism appears to be sensitive to other oral agents when ready for conversion to PO (Cipro, Bactrim) MELECIO MATHEW May 09, 2018 13:41
--- NOTE | 2018-05-09 13:43 | Medical Nutrition Therapy ---
Nutrition Anthropometrics Height (Inches): 68.00 Height (Calculated Centimeters: 172.925342 Weight (Pounds): 214 Weight (Calculated Kilograms): 97.069 BMI: 32.5 Rahul Nutrition Score: Adequate Rahul Nutrition Risk Score: 16 Dietary Referral Nutrition Risk Factors: Unplanned Loss >10lbs Nutrition Risk Comment: pt states lost 70 lbs over last 9 months Physical Findings Physical Appearance: Obese BMI 30-39 Skin Appearance Skin Appearance: Edema Edema Location Modifier: Right Edema Location: Ankle Type of Edema: Degree of Edema: Gastrointestinal Symptoms GI Symtoms: Appetite Changes Tube Present: Bowel Sounds: Recent Bowel Pattern: Diarrhea, Incontinent Stool Characteristics: Brown, Loose Nutritional Diagnosis Nutritional Risk Acuity 2: Unintended Wt Loss >5%/mo, Pr Appetite > 3d Past Medical History: Inguinal hernia repair, spinal surgery, repair of rotator cuff, Chronic back pain, alcohol use, GENERALIZED ANXIETY DISORDER, Depression, BPH, GERD, Peptic ulcer disease with hemorrhage, HTN, Flexion contractures Nutritional Acuity: 2-Moderate Nutrition Diagnosis: Involuntary Wt. Loss Nutrition Etiology: Physiological Causes Nutrition Problem/Etiology/Sym: AEB12.8% reported wt loss in 6 mo Adjusted Energy Requirement Re: 1725 ([place] adj for obesity) Protein Requirement: 97 (1gm/kg) Fluid Requirement: 2425 (25ml/kg) Diet Type: Diet as Tolerated JACKLYN/REG Nutrition Intervention: Cont diet as ordered, Encourage intake, Between meal supplement Additional Diet Restrictions: OFFER NUTR SUPPLMENT Nutrition Monitoring & Eval Nutrition Goals: Eat 75-100% Meal Nutrition Follow-Up: Fair Intake RD Patient Assessment Time: [address] Assessment Type: RD Assessment Patient Nutrition Acuity: 2-Moderate Follow Up Date: May 13, 2018 Nutritional Comment: 05/08 Pt reported 70# wt loss/9 month. When reviewing past admits, wt was between 230-250 past 5 yers. Pt stated wt of 250# in October 2017. Pt has demonstrated a signifircant wtlost of ~32#,(12.8%) in past 6 months. Of concern is pt cont poor po intake. Pt ate 0-25% recent admit and refused first meal this admit. Will offer nutritional supplments and encourage intake. Significant labs: alb 1.9, K+ 3.2. Will attempt nutrition physical assessment. BK 05/09 Unable to conduct nutr physical assessment. Pt eating 50% of meals. Encouraged pt to take nutri supplments and eat high protein foods. Alb cont low but improved to 2.1. Will cont to monitor and encourage intake. MISHEL GOLDBERG May 09, 2018 13:43
[2018-05-09 14:43] VITALS: BP 146/66
[2018-05-09] MEDS: cefTRIAXone(*) 1 GM VIAL 1 GM in NS(*) 0.9% 100 ML ADDVANT BAG 100 ML IVPB SCH (16:14)
[2018-05-09 18:27] VITALS: BP 124/87
[2018-05-09] MEDS: MELATONIN 3 MG TAB PO PRN (20:44)
[2018-05-09 23:30] VITALS: BP 141/96
[2018-05-10] MEDS: KCL/NS* 20 MEQ/1000 ML PREMIX 1,000 ML IV SCH ×2 (03:09→17:27)
[2018-05-10 06:08] LABS: PLATELET COUNT, AUTOMATED 238 K/uL (150-450)
[2018-05-10 07:23] VITALS: BP 164/99
[2018-05-10] MEDS ORDERED: ALPRAZolam 0.5 MG TAB PO PRN (08:10)
[2018-05-10] MEDS: MULTIVITAMINS TAB PO SCH (08:32)
[2018-05-10] MEDS: CALCIUM CARBONATE/VITAMIN D3 PO SCH ×2 (08:32→16:52)
[2018-05-10] MEDS: PANTOPRAZOLE SOD 40 MG TABEC PO SCH ×2 (08:32→20:57)
[2018-05-10] MEDS: CITALOPRAM HYDROBROM 20 MG TAB PO SCH (08:32)
[2018-05-10] MEDS: POTASSIUM CHL 10 MEQ TABCR PO SCH ×2 (08:32→16:52)
[2018-05-10] MEDS: LISINOPRIL 10 MG TAB PO SCH (08:32)
--- NOTE | 2018-05-10 10:47 | Hospitalist Progress Note ---
Subjective Progress Notes Subjective He has complaints of feeling anxious. He states he takes Xanax at home, and has not been receiving it during admission. He had no other complaints this morning. Patient Complains of: Cardiovascular: No: Chest Pain Respiratory: No: Shortness of Breath Physical Exam Vital Signs Date Time Temp Pulse Resp B/P (MAP) Pulse Ox O2 Delivery O2 Flow Rate FiO2 05/10/18 07:38 Room Air 05/10/18 07:23 97.8 80 12 164/99 (120) 90 05/09/18 18:27 82.0 Intake and Output 05/10/18 01:00 Intake Total 3467 ml Output Total 870 ml Balance 2597 ml Intake Oral 1859 ml IV Total 1608 ml Output Urine Total 870 ml # Voids 9 # Bowel Movements 3 General Appearance: Alert, Awake, No Acute Distress, Afebrile Neuro: No Gross deficits Cardiovascular: Regular Rate and Rhythm Respiratory: No Respiratory Distress, Clear to Auscultation GI: Soft and Non-Tender Psych: Alert & Oriented X3, Appropriate Mood & Affect Result Diagram: 05/10/1855305/10/18553 Assessment and Plan Problems: (1) UTI (urinary tract infection) Status: Acute Assessment & Plan: This has probably been contributing to his weakness. He is currently on IV Rocephin. Cultures have grown Morganella morganii which is sensitive to the Rocephin. Will continue. Recommend 7-10 days IV antibiotics for UTI. (2) Generalized weakness Status: Acute Assessment & Plan: Most likely due to the acute UTI as well as pre-existing anemia, borderline nutrition. Will treat as above, give gentle IV fluids, supplement diet, watch closely. (3) Anemia due to blood loss Status: Chronic Assessment & Plan: Due to recent UGI bleed. He had been showing some slow improvements in his lab, but Hgb/Hct dropped 05/08 (likely spurious result). He continues to hold steady in the mid-8 range (hemoglobin). Continue to monitor. (4) Peptic ulcer disease with hemorrhage Status: Resolved Assessment & Plan: He had recent UGI bleed, which required surgical intervention. Will continue his Protonix 40mg BID. (5) Depression Status: Chronic Assessment & Plan: Continue citalopram. (6) GENERALIZED ANXIETY DISORDER Status: Chronic Assessment & Plan: Continue his Xanax as usual. (7) HTN (hypertension) Status: Chronic Assessment & Plan: He is on chronic treatment with Lisinopril. Continue with hold parameters. Exam Sepsis Risk: No Definite Risk KONRAD GAINES May 10, 2018 10:47
[2018-05-10 11:15] VITALS: BP 136/101
[2018-05-10 15:18] VITALS: BP 133/100
[2018-05-10] MEDS: cefTRIAXone(*) 1 GM VIAL 1 GM in NS(*) 0.9% 100 ML ADDVANT BAG 100 ML IVPB SCH (16:52)
[2018-05-10] MEDS ORDERED: NS(*) 0.9% 250 ML BAG 250 ML ONE (16:53)
[2018-05-10 19:13] VITALS: BP 146/100
[2018-05-11 05:25] VITALS: BP 166/90
[2018-05-11 06:10] LABS: PLATELET COUNT, AUTOMATED 262 K/uL (150-450)
[2018-05-11] MEDS: KCL/NS* 20 MEQ/1000 ML PREMIX 1,000 ML IV SCH (07:12)
[2018-05-11 07:39] VITALS: BP 136/94
[2018-05-11] MEDS: CALCIUM CARBONATE/VITAMIN D3 PO SCH (09:00)
[2018-05-11] MEDS: MULTIVITAMINS TAB PO SCH (09:00)
[2018-05-11] MEDS: LISINOPRIL 10 MG TAB PO SCH (09:00)
[2018-05-11] MEDS: PANTOPRAZOLE SOD 40 MG TABEC PO SCH (09:00)
[2018-05-11] MEDS: POTASSIUM CHL 10 MEQ TABCR PO SCH (09:00)
[2018-05-11] MEDS: CITALOPRAM HYDROBROM 20 MG TAB PO SCH (09:00)
[2018-05-11] MEDS ORDERED: LISINOPRIL 5 MG TAB PO SCH (09:00)
[2018-05-11] MEDS ORDERED: MELA3TAB31 PO (09:31)
[2018-05-11] MEDS ORDERED: PANT40TA65 PO (09:31)
[2018-05-11] MEDS ORDERED: CITA-145 PO (09:31)
[2018-05-11] MEDS ORDERED: Calcium Carbonate/Vitamin D3 PO (09:31)
--- NOTE | 2018-05-11 09:38 | Hospitalist Depart ---
Discharge Summary Reason for Hosp/Final Diag: (1) UTI (urinary tract infection) Status: Acute Hospital Course & Plan: This has probably been contributing to his weakness. He is currently on IV Rocephin. Cultures have grown Morganella morganii which is sensitive to the Rocephin. He will need to continue for three more doses. Recommend 7 days total IV antibiotics for UTI. Will write prescription for [facility] to continue. (2) Generalized weakness Status: Acute Hospital Course & Plan: Most likely due to the acute UTI as well as pre-existing anemia, borderline nutrition. He was given gentle IV fluids, supplement diet. He will be transferred to the [facility] for further care. (3) Anemia due to blood loss Status: Chronic Hospital Course & Plan: Due to recent UGI bleed. He had been showing some slow improvements in his lab, but Hgb/Hct dropped 05/08. He continues to hold steady in the mid-8 range (hemoglobin). He will continue Protonix. (4) Peptic ulcer disease with hemorrhage Status: Resolved Hospital Course & Plan: He had recent UGI bleed, which required surgical intervention. Will continue his Protonix 40mg BID. (5) Depression Status: Chronic Hospital Course & Plan: Continue citalopram. (6) GENERALIZED ANXIETY DISORDER Status: Chronic Hospital Course & Plan: Continue his Xanax as usual. (7) HTN (hypertension) Status: Chronic Hospital Course & Plan: He is on chronic treatment with Lisinopril. Departure Latest Vital Signs Vital Signs 05/09/18 05/11/18 05/11/18 18:27 07:39 07:46 Temp 98.5 Pulse 89 Resp 12 B/P (MAP) 136/94 (108) Pulse Ox 89 O2 Delivery Room Air O2 Flow Rate 82.0 Weight (Pounds): 215 Weight (Ounces): 4.0 Result Diagram: 05/11/1852505/11/18525 Condition: Improved Discharge: Halfway PT/OT Follow Up For: PT For Strengthening, PT Evaluation and Treat, ST Evaluation and Treat, OT Evaluation and Treat Discharge Instructions Home Meds Active Scripts Citalopram Hydrobromide (CITALOPRAM HBR) 20 Mg Tablet, 20 MG PO QDAY, #30 TAB Prov:KONRAD GAINES [employer] ENGRAVER 05/11/18 Melatonin (MELATONIN) 3 Mg Tablet, 3 MG PO QHS PRN for INSOMNIA, #30 TAB Prov:KONRAD GAINES [employer] ENG[employer]VER 05/11/18 [Calcium Carbonate/Vitamin D3] 1 EA TAB No Conflict Check, 1 EACH PO BIDBS, #60 TAB Prov:KONRAD GAINES [employer] ENGRAVER 05/11/18 Pantoprazole Sodium (PANTOPRAZOLE SODIUM) 40 Mg Tablet.dr, 40 MG PO BID, #60 TAB Prov:KONRAD GAINES [employer] ENGRAVER 05/11/18 Reported Medications Alprazolam (XANAX) 0.5 Mg Tablet, 1 TAB PO TID PRN for ANXIETY, TAB 05/08/18 Lisinopril (LISINOPRIL) 10 Mg Tablet, 10 MG PO QDAY, TAB 05/08/18 Lisinopril (LISINOPRIL) 5 Mg Tablet, 2.5 MG PO QDAY, TAB 05/08/18 Multivits,Th W-Fe,Other Min (THERA-M) 1 Each Tablet, 1 EACH PO QDAY 05/05/18 Discontinued Reported Medications Gabapentin (GABAPENTIN) 300 Mg Capsule, 100 MG PO QDAY, CAPSULE 05/08/18 Omeprazole Magnesium (PRILOSEC OTC) 20 Mg Tablet.dr, 1 TAB PO QDAY, TAB 05/08/18 Pantoprazole Sodium (PROTONIX) 40 Mg Granpkt.dr, 40 MG PO BID, PACK 05/05/18 [Oscal D] No Conflict Check, 1 EA PO BIDBS 05/05/18 Citalopram Hydrobromide (CELEXA) 20 Mg Tablet, 40 MG PO QDAY, #5 TAB 05/05/18 Oxygen (OXYGEN) Inha, 2 L INH QHS, L 05/05/18 Hydroxyzine Pamoate (VISTARIL) 25 Mg Capsule, 50 MG PO QHS, CAPSULE 05/05/18 Pantoprazole Sodium (PANTOPRAZOLE SODIUM) 40 Mg Tablet., 40 MG PO BID, TAB.SR 05/05/18 Meloxicam (MELOXICAM) 7.5 Mg Tablet, 1-2 EA PO QDAY 05/05/18 Gabapentin (GABAPENTIN) 100 Mg Capsule, 100 MG PO TID, CAPSULE 05/05/18 Diet: Regular Activity: As Tolerated Copies to: SIS ALDRICH DO ; Venous Thromboembolism Antithrombotics Is Pt On Any Antithrombotics?: No (recent UGI bleeding) KONRAD GAINES P[employer]APH [employer] ENGRAVER May 11, 2018 09:38
== END 2018-05-11 12:01 | DRG 690 ==
LOC: ER 13:36 → MED 19:00
PROVIDERS: ADMIT Family Medicine; ATTEND Family Medicine
DX: N39.0 Urinary tract infection, site not specified (principal); R62.7 Adult failure to thrive; E86.0 Dehydration; R53.1 Weakness; N40.0 Benign prostatic hyperplasia without lower urinary tract symptoms; D50.0 Iron deficiency anemia secondary to blood loss (chronic); F41.1 Generalized anxiety disorder; B96.89 Other specified bacterial agents as the cause of diseases classified elsewhere; K27.7 Chronic peptic ulcer, site unspecified, without hemorrhage or perforation; F32.9 Major depressive disorder, single episode, unspecified; I10 Essential (primary) hypertension; G89.29 Other chronic pain; Z88.8 Allergy status to other drugs, medicaments and biological substances
CPT/HCPCS: 36415; 81001; 82040; 82247; 82310; 82374; 82435; 82565; 82947; 84075; 84132; 84155; 84295; 84450; 84460; 84484; 84520; 85014; 85018; 85025; 87077; 87088; 87186; 93005; 96374; 99284; J0696; J3480; J7030; J7050

== ENCOUNTER → 2018-05-07 | Outpatient (CLI) | payer MEDICARE, OTHER ==
[~2018-05-07] MED LIST changes: +ALPR-429 PO; +CITA-145 PO; +CITA-156 PO; +Calcium Carbonate/Vitamin D3 PO; +GABA-547 PO; +HYDR25CA83 PO; +LISI-362 PO; +LISI5TAB25 PO; +MELA3TAB31 PO; +MULT-1379 PO; +OSCAL D PO; +OXYGENHOME INH; +PANT40SU3 PO
[2018-05-08 14:23] VITALS: BMI 33.1
== END ==
LOC: AMB 12:39
PROVIDERS: ATTEND Nurse Practitioner
DX: R53.1 Weakness (principal); R17 Unspecified jaundice
CPT/HCPCS: A0425; A0427

== ENCOUNTER 2018-06-09 22:33 | Emergency (ER) | payer MEDICARE, OTHER ==
[2018-05-08 14:23] VITALS: Wt 97.6 kg
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
[~2018-06-09 22:33] MED LIST changes: -TRAZ150T8 PO
[2018-06-09] MEDS ORDERED: LORazepam 2 MG/ML VIAL IVP ONE (22:35)
[2018-06-09 22:59] LABS: PLATELET COUNT, AUTOMATED 263 K/uL (150-450)
--- NOTE | 2018-06-09 23:27 | EKG ---
FACILITY: [facility] PATIENT NAME: KERRI GARCIA : [id number] MR: [id number] V: [id number] EXAM DATE: ORDERING PHYSICIAN: CAROL WOODS TECHNOLOGIST: RYAN Crabtree Reason : SHOULDER PAIN Blood Pressure : / mmHG Vent. Rate : 090 BPM Atrial Rate : 090 BPM P-R Int : 172 ms QRS Dur : 086 ms QT Int : 360 ms P-R-T Axes : 026 008 023 degrees QTc Int : 440 ms Sinus rhythm Artifact in limb leads - repeat if needed Confirmed by JESSY OVALLE ([id number]) on 06/10/2018 6:01:32 AM Referred By: Confirmed By:JESSY OVALLE
--- NOTE | 2018-06-10 | RADIOLOGY IMAGING REPORT ---
FACILITY: [facility] PATIENT NAME: Rui Mcgarry : 1950 MR: [id number] V: [id number] EXAM DATE: ORDERING PHYSICIAN: CAROL WOODS TECHNOLOGIST: Location: [facility] [place] Patient: Rui Mcgarry : 1950 Visit/Account:[id number] Date of Sevice: 06/09/2018 AP CHEST 06/09/2018 10:34 PM. INDICATION: shoulder pain COMPARISON: 04/30/2018. FINDINGS: Lungs are well-expanded. There is no consolidation. No pleural effusion or pneumothorax. Heart size i s normal. No acute osseous abnormality. IMPRESSION: No acute abnormality or significant change. Report Dictated By: Haile Rutledge MD at 06/09/2018 11:55 PM Report E-Signed By: Haile Rutledge MD at 06/09/2018 11:57 PM WSN:[id number]
[2018-06-10] MEDS ORDERED: TRAZ150T8 PO (00:35)
[2018-06-10] MEDS ORDERED: LORazepam 0.5 MG TAB PO ONE (00:40)
[2018-06-10] MEDS ORDERED: traZODone HCL 50 MG TAB PO ONE (00:40)
== END 2018-06-10 00:58 | disposition home or self-care (01) ==
LOC: ER 22:49
DX: F43.22 Adjustment disorder with anxiety (principal); F51.04 Psychophysiologic insomnia
CPT/HCPCS: 71045; 84484; 85025; 93005; 96374; 99284; A9270; J2060; 82040; 82247; 82310; 82374; 82435; 82565; 82947; 84075; 84132; 84155; 84295; 84450; 84460; 84520

== ENCOUNTER → 2018-06-09 | Outpatient (CLI) | payer MEDICARE, OTHER ==
[2018-05-08 14:23] VITALS: BMI 33.1
[~2018-06-09] MED LIST changes: +ALPR-429 PO; +CITA-145 PO; +Calcium Carbonate/Vitamin D3 PO; +LISI-362 PO; +LISI5TAB25 PO; +MELA3TAB31 PO; +TRAZ150T8 PO
== END ==
LOC: AMB 21:54
PROVIDERS: ATTEND Nurse Practitioner
DX: R20.0 Anesthesia of skin (principal); R53.1 Weakness; F41.9 Anxiety disorder, unspecified
CPT/HCPCS: A0425; A0429

== ENCOUNTER → 2018-06-10 | Outpatient (CLI) | payer MEDICARE, OTHER ==
[2018-05-08 14:23] VITALS: BMI 33.1
[~2018-06-10] MED LIST changes: +TRAZ150T8 PO
== END ==
LOC: AMB 00:54
PROVIDERS: ATTEND Nurse Practitioner
DX: Z76.89 Persons encountering health services in other specified circumstances (principal)
CPT/HCPCS: A0425; A0428

== ENCOUNTER 2018-09-26 14:19 | Emergency (ER) | payer MEDICARE, OTHER ==
[2018-05-08 14:23] VITALS: Wt 104.3 kg
--- NOTE | 2018-09-26 14:24 | ER Report ---
History and Physical Time Seen By MD: 14:24 (DIAZ HUNT MD) HPI/ROS CHIEF COMPLAINT: Shortness of breath HISTORY OF PRESENT ILLNESS: Patient is a pleasant 68-year-old male who lives by himself he states that he is developed shortness of breath that began early this morning particularly when he lays flat. He's also noticed increased fluid in his legs bilaterally. He states that the right lower extremity cervical small but no w the left is quite swollen. He denies any chest pain currently he denies chest pressure. Denies any influenza or flulike symptoms. Denies fevers or chills denies cough. He denies any nausea vomiting or abdominal pain. Patient denies any recent travel history. He states he's never had a heart attack before never been told he has congestive heart failure. Patient notes that position seems to make a difference with breathing sitting up makes him feel better laying flat makes him feels that he cannot catch his breath. He states that he went to bed feeling well last night however. REVIEW OF SYSTEMS: Constitutional: No fever, no chills. Eyes: No discharge. ENT: No sore throat. Cardiovascular: No chest pain, no palpitations. Respiratory: Shortness of breath, no cough Gastrointestinal: No abdominal pain, no vomiting. Genitourinary: No hematuria. Musculoskeletal: No back pain. Skin: No rashes. Neurological: No headache. (DIAZ HUNT MD) Allergies: Coded Allergies: bupropion (Verified Allergy, Mild, 06/09/18) Home Meds Active Scripts Furosemide (LASIX) 40 Mg Tablet, 1 TAB PO DAILY, #3 TAB Prov:JIE CAI DO 09/26/18 Trazodone Hcl (TRAZODONE HCL) 150 Mg Tablet, 150 MG PO QHS, #30 TAB-CAP 0 Ref ills Prov:CAROL WOODS MD 06/10/18 Citalopram Hydrobromide (CITALOPRAM HBR) 20 Mg Tablet, 20 MG PO QDAY, #30 TAB Prov:KONRAD GAINES 05/11/18 Melatonin (MELATONIN) 3 Mg Tablet, 3 MG PO QHS PRN for INSOMNIA, #30 TAB Prov:KONRAD GAINES 05/11/18 [Calcium Carbonate/Vitamin D3] 1 EA TAB No Conflict Check, 1 EACH PO BIDBS, #60 TAB Prov:KONRAD GAINES [employer]CIAL ACCOUNT EXECUTIVE 05/11/18 Pantoprazole Sodium (PANTOPRAZOLE SODIUM) 40 Mg Tablet.dr, 40 MG PO BID, #60 TAB Prov:KONRAD GAINES [employer]ER[employer] ACCOUNT EXECUTIVE 05/11/18 Reported Medications Alprazolam (XANAX) 0.5 Mg Tablet, 1 TAB PO TID PRN for ANXIETY, TAB 05/08/18 Lisinopril (LISINOPRIL) 10 Mg Tablet, 10 MG PO QDAY, TAB 05/08/18 Lisinopril (LISINOPRIL) 5 Mg Tablet, 2.5 MG PO QDAY, TAB 05/08/18 Multivits,Th W-Fe,Other Min (THERA-M) 1 Each Tablet, 1 EACH PO QDAY 05/05/18 Past Medical/Surgical History Patient has a past medical history of hypertension, pneumonia, reflux, enlarged prostate, back pain, alcohol use, depression, anxiety, 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 Patient has surgical history of tumor removed, right shoulder surgery, hernia repair. (DIAZ HUNT MD) Hx Smoking: Yes Smoking Status: Former Smoker Exposure to Second Hand Smoke?: No Hx Substance Use Disorder: Yes Hx Alcohol Use: No (DIAZ HUNT MD) Constitutional Vital Sign - Last 24 Hours 09/26/18 09/26/18 09/26/18 09/26/18 14:27 15:30 15:37 16:00 Temp 98.2 Pulse 89 90 92 Resp 20 10 B/P (MAP) 183/113 180/107 (131) 188/106 (133) Pulse Ox 87 96 85 O2 Delivery Room Air 09/26/18 09/26/18 09/26/18 09/26/18 16:30 16:48 17:45 18:10 Pulse 86 Resp 20 B/P (MAP) 173/111 (131) Pulse Ox 76 83 O2 Delivery Room Air Room Air (LAURORA,JIE V DO) Physical Exam General/Constitutional: Patient is awake, alert, nontoxic and in no acute respiratory distress. Head: Normocephalic and atraumatic. Eyes: Conjunctival clear, Pupils are equal and reactive to light. Sclera are clear and anicteric. Ears:External canals are clear. Tympanic membranes are clear with normal landmarks and light reflex. Nares: No rhinorrhea or bleeding. Turbinates are pink and moist. Oropharyngeal: Mucous membranes are moist. There is no pharyngeal erythema or exudate. There are no palatal petechiae. Uvula is midline and symmetrical. Neck: Supple, no adenopathy. Cardiovascular: Heart is regular rate and rhythm without audible murmurs, rubs or gallops. Pulmonary: Lungs are clear to auscultation bilaterally. There are no wheezes, rales, or rhonchi. Chest rise is symmetrical Abdomen: Protuberant, Soft, nontender, no guarding or peritoneal signs. Extremities: No gross deformities, outpatient with 4+ pitting edema bilateral lower extremities. Neuro: Alert and oriented X3, Skin: No rashes, skin is warm dry and well perfused. (DIAZ HUNT MD) Medical Decision Making Data Points Result Diagram: 09/26/18 1515 09/26/18 1515 Laboratory Hematology Test 09/26/18 15:15 09/26/18 17:56 Red Blood Count 3.77 M/uL (4.00-5.60) Mean Corpuscular Volume 82.0 fL (80.0-96.0) Mean Corpuscular Hemoglobin 26.1 pg (26.0-33.0) Mean Corpuscular Hemoglobin Concent 31.9 g/dL (32.0-36.0) Red Cell Distribution Width 16.0 % (11.5-14.5) Mean Platelet Volume 6.9 fL (7.2-11.1) Neutrophils (%) (Auto) 72.7 % (39.4-72.5) Lymphocytes (%) (Auto) 15.0 % (17.6-49.6) Monocytes (%) (Auto) 10.6 % (4.1-12.4) Eosinophils (%) (Auto) 0.4 % (0.4-6.7) Basophils (%) (Auto) 1.3 % (0.3-1.4) Nucleated RBC Relative Count (auto) 0.0 /100WBC Neutrophils # (Auto) 5.3 K/uL (2.0-7.4) Lymphocytes # (Auto) 1.1 K/uL (1.3-3.6) Monocytes # (Auto) 0.8 K/uL (0.3-1.0) Eosinophils # (Auto) 0.0 K/uL (0.0-0.5) Basophils # (Auto) 0.1 K/uL (0.0-0.1) Nucleated RBC Absolute Count (auto) 0.00 K/uL Prothrombin Time 14.0 seconds (12.0-14.4) Prothromb Time International Ratio 1.08 Activated Partial Thromboplast Time 34 seconds (23-35) Sodium Level 141 mmol/L (137-145) Potassium Level 4.1 mmol/L (3.5-5.0) Chloride Level 102 mmol/L (98-107) Carbon Dioxide Level 26 mmol/L (22-30) Blood Urea Nitrogen 11 mg/dl (9-21) Creatinine 0.90 mg/dl (0.66-1.25) Glomerular Filtration Rate Calc > 60.0 Random Glucose 78 mg/dl (75-110) Calcium Level 9.0 mg/dl (8.4-10.2) Total Bilirubin 0.5 mg/dl (0.2-1.3) Aspartate Amino Transf (AST/SGOT) 46 U/L (0-35) Alanine Aminotransferase (ALT/SGPT) 26 U/L (0-56) Alkaline Phosphatase 125 U/L (0-126) B-Type Natriuretic Peptide 547 pg/ml (0-100) Total Protein 7.8 g/dl (6.3-8.2) Albumin 4.1 g/dl (3.5-5.0) Troponin I 0.019 ng/ml Chemistry Test 09/26/18 15:15 09/26/18 17:56 White Blood Count 7.2 k/uL (4.5-11.0) Red Blood Count 3.77 M/uL (4.00-5.60) Hemoglobin 9.9 g/dL (14.0-18.0) Hematocrit 30.9 % (42.0-52.0) Mean Corpuscular Volume 82.0 fL (80.0-96.0) Mean Corpuscular Hemoglobin 26.1 pg (26.0-33.0) Mean Corpuscular Hemoglobin Concent 31.9 g/dL (32.0-36.0) Red Cell Distribution Width 16.0 % (11.5-14.5) Platelet Count 236 K/uL (150-450) Mean Platelet Volume 6.9 fL (7.2-11.1) Neutrophils (%) (Auto) 72.7 % (39.4-72.5) Lymphocytes (%) (Auto) 15.0 % (17.6-49.6) Monocytes (%) (Auto) 10.6 % (4.1-12.4) Eosinophils (%) (Auto) 0.4 % (0.4-6.7) Basophils (%) (Auto) 1.3 % (0.3-1.4) Nucleated RBC Relative Count (auto) 0.0 /100WBC Neutrophils # (Auto) 5.3 K/uL (2.0-7.4) Lymphocytes # (Auto) 1.1 K/uL (1.3-3.6) Monocytes # (Auto) 0.8 K/uL (0.3-1.0) Eosinophils # (Auto) 0.0 K/uL (0.0-0.5) Basophils # (Auto) 0.1 K/uL (0.0-0.1) Nucleated RBC Absolute Count (auto) 0.00 K/uL Prothrombin Time 14.0 seconds (12.0-14.4) Prothromb Time International Ratio 1.08 Activated Partial Thromboplast Time 34 seconds (23-35) Glomerular Filtration Rate Calc > 60.0 Calcium Level 9.0 mg/dl (8.4-10.2) Total Bilirubin 0.5 mg/dl (0.2-1.3) Aspartate Amino Transf (AST/SGOT) 46 U/L (0-35) Alanine Aminotransferase (ALT/SGPT) 26 U/L (0-56) Alkaline Phosphatase 125 U/L (0-126) B-Type Natriuretic Peptide 547 pg/ml (0-100) Total Protein 7.8 g/dl (6.3-8.2) Albumin 4.1 g/dl (3.5-5.0) Troponin I 0.019 ng/ml Coagulation Test 09/26/18 15:15 Prothrombin Time 14.0 seconds Prothromb Time International Ratio 1.08 Activated Partial Thromboplast Time 34 seconds (JIE CAI DO) ED Course/Re-evaluation Clinical Indication for ER IV: IV Access ED Course 09/26/2018 2:46:41 pm patient is a 68-year-old male with orthopnea and shortness of breath. Plan at this time will be cardiac workup with Dr. dominguez at the 3 hour window. We will also check a EMP, chest x-ray. We'll also give IV Lasix. Decision to Disposition Date: Sep 27, 2018 Decision to Disposition Time: 19:30 (DIAZ HUNT MD) ED Course 09/26/2018 4:23:23 pm PT signed out to me pending labs. PT troponin was in normal range but had elevation of his bnp. Pt was given lasix by Dr. hunt and has been diuresing in the emergency department. Pt states he is breathing better. Will keep pt for second troponin. 09/26/2018 4:28:43 pm Pt blood pressure has been elevated. Pt states "thats normal. thats why I take lisinipril". Pt did not take his lisinpril today. will give medication 09/26/2018 6:49:39 pm Pts second troponin is in the normal range, however i am very concerned with pt going home. Pt is requiring oxygen. Pt denies ever having chest pain and states that he was only sob. Pt has no cough or pain with breathing. "i am sob when I lie flat". PT feels the sob is better since he had the lasix and wants to go. Pt at rest is 90% on room air after the lasix but when I walked him he went down to 77%. PT asking if he can go home with oxygen. Pt refusing admission. will call resp to arrange oxygen home therapy. Pt will require close follow up. 09/26/2018 7:13:50 pm Resp down seeing pt. He still wanting to go home. Pt is going home. [facility] bringing pt oxygen to ED. Decision to Disposition Date: Sep 26, 2018 Decision to Disposition Time: 18:51 (JIE CAI DO) Depart Departure Latest Vital Signs Vital Signs Date Time Temp Pulse Resp B/P (MAP) Pulse Ox O2 Delivery O2 Flow Rate FiO2 09/26/18 18:10 83 Room Air 09/26/18 16:48 173/111 (131) 09/26/18 16:30 86 20 09/26/18 14:27 98.2 (JIE CAI DO) Impression: Primary Impression: Congestive heart failure (CHF) Additional Impression: Hypoxia Condition: Improved Disposition: HOME OR SELF-CARE Referrals: SIS ALDRICH DO (PCP) 2 Days New Scripts Furosemide (LASIX) 40 Mg Tablet 1 TAB PO DAILY, #3 TAB Prov: JIE CAI DO 09/26/18 Departure Forms: ER Transition Record, Home Oxygen, Nebulizer RX, Home Oxy gen Company Chosen by Patient: [facility] Home Oxygen Durable Medical Equipment-Oxygen: Oxygen Concentrator, Portable Oxygen Gas Reason for Use/Diagnosis: congestive heart failure Start Date of the Order: Sep 26, 2018 Dosage or Concentration (if applicable) - LPM: 3 Route of Administration (if applicable): Nasal Cannula Frequency of Use: Continuous Duration Home O2 Required: 99 Duration Units: Days Room Air Oxygen Saturation: 83 ER Prescribing Physician's Name: Jie Cai NPI Numbers for Local ER MDs: Philip [id number] Medications Reconciliation, Patient Portal Information Patient Instructions: Heart Failure (ED) Additional Instructions: You need to call your family doctor tomorrow to arrange a follow up appointment in next 24-48 hours I am concerned about your heart and your breathing. Your labs show mild congestive heart failure. We are starting you on Lasix once a day for next 3 days. We are also sending you home on oxygen to use as needed for shortness of breath. If symptoms worsen, if you develop fevers, chest pain, pain with breathing, or any other concerns please return immediately. Problem Qualifiers Primary Impression: Congestive heart failure (CHF) Heart failure type: unspecified Heart failure chronicity: acute Qualified Codes: I50.9 - Heart failure, unspecified DIAZ HUNT MD Sep 26, 2018 14:24 JIE CAI DO Sep 26, 2018 16:24
[2018-09-26] MEDS ORDERED: ONDANSETRON 4 MG ODT TH SL ONE (14:50)
[2018-09-26] MEDS ORDERED: FUROSEMIDE 40 MG/4 ML VIAL IVP SCH (14:55)
[2018-09-26] MEDS ORDERED: ASPIRIN 81 MG CHEW PO ONE (14:55)
[2018-09-26] MEDS ORDERED: FUROSEMIDE 40 MG/4 ML VIAL IVP ONE (15:10)
[2018-09-26 15:24] LABS: PLATELET COUNT, AUTOMATED 236 K/uL (150-450)
[2018-09-26 15:33] LABS: INR 1.08
--- NOTE | 2018-09-26 15:50 | EKG ---
FACILITY: [facility] [place] PATIENT NAME: KERRI GARCIA : [id number] MR: [id number] V: [id number] EXAM DATE: ORDERING PHYSICIAN: DIAZ CARNEY TECHNOLOGIST: ALIN Crabtree Reason : Blood Pressure : / mmHG Vent. Rate : 089 BPM Atrial Rate : 089 BPM P-R Int : 172 ms QRS Dur : 096 ms QT Int : 382 ms P-R-T Axes : 035 042 025 degrees QTc Int : 464 ms Normal sinus rhythm Normal ECG When compared with ECG of 09-JUN-2018 22:47, Unchanged Confirmed by EDILMA PIERRE ([id number]) on 09/26/2018 5:15:48 PM Referred By: Confirmed By:EDILMA PIERRE
--- NOTE | 2018-09-26 16:18 | RADIOLOGY IMAGING REPORT ---
FACILITY: [facility] [place] PATIENT NAME: Rui Mcgarry : 1950 MR: [id number] V: [id number] EXAM DATE: ORDERING PHYSICIAN: DIAZ CARNEY TECHNOLOGIST: Location: [facility] [place], [place] Patient: Rui Mcgarry : 1950 Visit/Account:[id number] Date of Sevice: 09/26/2018 2 VIEWS CHEST INDICATION: Chest pain. Cough. COMPARISON: 06/09/2018. FINDINGS: Cardiomediastinal silhouette and pulmonary vessels within normal limits. There is no focal infiltrate or lobar consolidation. There is no pneumothorax or pleural effusion. No nodule. Upper abdomen is unremarkable. No acute bony abnormality. IMPRESSION: 1. No acute cardiopulmonary process. Report Dictated By: Dominic Raza at 09/26/2018 4:13 PM Report E-Signed By: Dominic Raza at 09/26/2018 4:14 PM WSN:[id number]
[2018-09-26] MEDS ORDERED: LISINOPRIL 20 MG TAB PO ONE (16:30)
[2018-09-26 16:48] VITALS: BP 173/111
[2018-09-26] MEDS ORDERED: FURO40TA35 PO (18:53)
== END 2018-09-26 20:50 | disposition home or self-care (01) ==
LOC: ER 14:25
DX: I50.9 Heart failure, unspecified (principal); R09.02 Hypoxemia
CPT/HCPCS: 36415; 71046; 83880; 84484; 85025; 85610; 85730; 93005; 96374; 99284; A9270; J1940; 82040; 82247; 82310; 82374; 82435; 82565; 82947; 84075; 84132; 84155; 84295; 84450; 84460; 84520; 96375

== ENCOUNTER 2018-12-02 18:19 | Inpatient (IN) | payer MEDICARE, OTHER ==
[2018-05-08 14:23] VITALS: Ht 175.3 cm; Wt 91.6 kg
[~2018-12-02] VITALS: Ht 175.3 cm; Wt 91.6 kg
[~2018-12-02 18:19] MED LIST changes: +FURO40TA35 PO
--- NOTE | 2018-12-02 18:26 | ER Report ---
History and Physical Time Seen By MD: 18:26 HPI/ROS CHIEF COMPLAINT: Bloody stools HISTORY OF PRESENT ILLNESS: This is a 68-year-old male presents to the emergency department for bloody stools. Patient states that over the last week he has had black tarry stools with intermittent nausea and vomiting, emesis is black as well. Intermittent epigastric pain, currently no pain. Denies shortness of breath. No fevers or chills. Denies chest pain. No rashes. Patient was transferred to [place] last year for GI bleed. His been in and out of hospital since as well as the [facility]. He does however live at home alone. He is somewhat incontinent of stool. Upon entering the room there is foul odor noted. He also drinks on a daily basis. REVIEW OF SYSTEMS: Constitutional: No fever, no chills. Eyes: No discharge. ENT: No sore throat. Cardiovascular: No chest pain, no palpitations. Respiratory: No cough, no shortness of breath. Gastrointestinal: As above. Genitourinary: No hematuria. Musculoskeletal: No back pain. Skin: No rashes. Neurological: No headache. Allergies: Coded Allergies: bupropion (Verified Allergy, Mild, 06/09/18) Home Meds Active Scripts Trazodone Hcl (TRAZODONE HCL) 150 Mg Tablet, 150 MG PO QHS, #30 TAB-CAP 0 Refills Prov:CAROL WOODS MD 06/10/18 Melatonin (MELATONIN) 3 Mg Tablet, 3 MG PO QHS PRN for INSOMNIA, #30 TAB Prov:KONRAD GAINES [facility] 05/11/18 Pantoprazole Sodium (PANTOPRAZOLE SODIUM) 40 Mg Tablet.dr, 40 MG PO BID, #60 TAB Prov:KONRAD GAINESP 05/11/18 Reported Medications Meloxicam (MELOXICAM) 7.5 Mg Tablet, 1 TAB PO QHS 12/02/18 Hydrochlorothiazide (HYDROCHLOROTHIAZIDE) 12.5 Mg Tablet, 1 TAB PO QDAY, TAB 12/02/18 Citalopram Hydrobromide (CITALOPRAM HBR) 20 Mg Tablet, 40 MG PO QDAY, #5 TAB 12/02/18 Lisinopril (LISINOPRIL) 10 Mg Tablet, 10 MG PO QDAY, TAB 05/08/18 Discontinued Reported Medications Alprazolam (XANAX) 0.5 Mg Tablet, 1 TAB PO TID PRN for ANXIETY, TAB 05/08/18 Lisinopril (LISINOPRIL) 5 Mg Tablet, 2.5 MG PO QDAY, TAB 05/08/18 Multivits,Th W-Fe,Other Min (THERA-M) 1 Each Tablet, 1 EACH PO QDAY 05/05/18 Discontinued Scripts Furosemide (LASIX) 40 Mg Tablet, 1 TAB PO DAILY, #3 TAB Prov:DEQUANMIYAFAISAL V DO 09/26/18 Citalopram Hydrobromide (CITALOPRAM HBR) 20 Mg Tablet, 20 MG PO QDAY, #30 TAB Prov:KONRAD GAINES [facility] 05/11/18 [Calcium Carbonate/Vitamin D3] 1 EA TAB No Conflict Check, 1 EACH PO BIDBS, #60 TAB Prov:KONRAD GAINES [facility] 05/11/18 Past Medical/Surgical History The patient has a past medical and surgical history of wearing glasses, hard of hearing, tinnitus, "fluid on the brain from bacterial infection", leg swelling, hypertension, shortness of breath, upper GI bleed, hernia repair, GERD, vasectomy, BPH, rotator cuff surgery, arthritis, 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 Reviewed Nurses Notes: Yes Hx Smoking: Yes Smoking Status: Former Smoker Exposure to Second Hand Smoke?: No Hx Substance Use Disorder: Yes Hx Alcohol Use: No Constitutional Vital Sign - Last 24 Hours 12/02/18 12/02/18 18:31 19:25 Temp 98.6 Pulse 74 Resp 16 B/P (MAP) 153/102 Pulse Ox 99 O2 Delivery Nasal Cannula O2 Flow Rate 3.0 Physical Exam General Appearance: The patient is alert, has no immediate need for airway protection and no signs of toxicity. Eyes: Pupils equal and round no pallor or injection. ENT, Mouth: Mucous membranes are moist. Respiratory: There are no retractions, lungs are clear to auscultation. Cardiovascular: Regular rate and rhythm. No murmurs, clicks or rubs. Gastrointestinal: Abdomen is soft and non tender, no masses, hypoactive bowel sounds, no abdominal bruits. Dried, dark black stools surrounding the rectum, malodorous, digital exam showing dark black stools on gloved finger. Neurological: Alert and oriented 4. Moving all extremities. Following all commands. No focal neuro deficits. Skin: Warm and dry, no rashes. Musculoskeletal: Neck is supple non tender. Extremities are nontender, nonswollen and have full range of motion. DIFFERENTIAL DIAGNOSIS: After history and physical exam differential diagnosis was considered for upper GI bleed, lower GI bleed, negative ecchymosis, diverticulitis. Medical Decision Making Data Points Result Diagram: 12/02/18183712/02/181837 Laboratory Hematology Test 12/02/18 18:38 12/02/18 18:51 Red Blood Count 3.75 M/uL (4.00-5.60) Mean Corpuscular Volume 80.3 fL (80.0-96.0) Mean Corpuscular Hemoglobin 25.4 pg (26.0-33.0) Mean Corpuscular Hemoglobin Concent 31.6 g/dL (32.0-36.0) Red Cell Distribution Width 21.0 % (11.5-14.5) Mean Platelet Volume 8.7 fL (7.2-11.1) Neutrophils (%) (Auto) 67.8 % (39.4-72.5) Lymphocytes (%) (Auto) 19.5 % (17.6-49.6) Monocytes (%) (Auto) 9.8 % (4.1-12.4) Eosinophils (%) (Auto) 1.9 % (0.4-6.7) Basophils (%) (Auto) 1.0 % (0.3-1.4) Nucleated RBC Relative Count (auto) 0.1 /100WBC Neutrophils # (Auto) 4.2 K/uL (2.0-7.4) Lymphocytes # (Auto) 1.2 K/uL (1.3-3.6) Monocytes # (Auto) 0.6 K/uL (0.3-1.0) Eosinophils # (Auto) 0.1 K/uL (0.0-0.5) Basophils # (Auto) 0.1 K/uL (0.0-0.1) Nucleated RBC Absolute Count (auto) 0.00 K/uL Prothrombin Time 12.6 seconds (12.0-14.4) Prothromb Time International Ratio 0.94 Activated Partial Thromboplast Time 29 seconds (23-35) Sodium Level 135 mmol/L (137-145) Potassium Level 3.1 mmol/L (3.5-5.0) Chloride Level 93 mmol/L (98-107) Carbon Dioxide Level 26 mmol/L (22-30) Blood Urea Nitrogen 21 mg/dl (9-21) Creatinine 1.20 mg/dl (0.66-1.25) Glomerular Filtration Rate Calc > 60.0 Random Glucose 83 mg/dl (75-110) Calcium Level 8.5 mg/dl (8.4-10.2) Total Bilirubin 0.2 mg/dl (0.2-1.3) Aspartate Amino Transf (AST/SGOT) 32 U/L (0-35) Alanine Aminotransferase (ALT/SGPT) 30 U/L (0-56) Alkaline Phosphatase 119 U/L (0-126) Total Protein 7.5 g/dl (6.3-8.2) Albumin 4.0 g/dl (3.5-5.0) Lipase 68 U/L (23-300) Stool Occult Blood (IFOB) Positive (NEGATIVE) Chemistry Test 12/02/18 18:38 12/02/18 18:51 White Blood Count 6.2 k/uL (4.5-11.0) Red Blood Count 3.75 M/uL (4.00-5.60) Hemoglobin 9.5 g/dL (14.0-18.0) Hematocrit 30.1 % (42.0-52.0) Mean Corpuscular Volume 80.3 fL (80.0-96.0) Mean Corpuscular Hemoglobin 25.4 pg (26.0-33.0) Mean Corpuscular Hemoglobin Concent 31.6 g/dL (32.0-36.0) Red Cell Distribution Width 21.0 % (11.5-14.5) Platelet Count 178 K/uL (150-450) Mean Platelet Volume 8.7 fL (7.2-11.1) Neutrophils (%) (Auto) 67.8 % (39.4-72.5) Lymphocytes (%) (Auto) 19.5 % (17.6-49.6) Monocytes (%) (Auto) 9.8 % (4.1-12.4) Eosinophils (%) (Auto) 1.9 % (0.4-6.7) Basophils (%) (Auto) 1.0 % (0.3-1.4) Nucleated RBC Relative Count (auto) 0.1 /100WBC Neutrophils # (Auto) 4.2 K/uL (2.0-7.4) Lymphocytes # (Auto) 1.2 K/uL (1.3-3.6) Monocytes # (Auto) 0.6 K/uL (0.3-1.0) Eosinophils # (Auto) 0.1 K/uL (0.0-0.5) Basophils # (Auto) 0.1 K/uL (0.0-0.1) Nucleated RBC Absolute Count (auto) 0.00 K/uL Prothrombin Time 12.6 seconds (12.0-14.4) Prothromb Time International Ratio 0.94 Activated Partial Thromboplast Time 29 seconds (23-35) Glomerular Filtration Rate Calc > 60.0 Calcium Level 8.5 mg/dl (8.4-10.2) Total Bilirubin 0.2 mg/dl (0.2-1.3) Aspartate Amino Transf (AST/SGOT) 32 U/L (0-35) Alanine Aminotransferase (ALT/SGPT) 30 U/L (0-56) Alkaline Phosphatase 119 U/L (0-126) Total Protein 7.5 g/dl (6.3-8.2) Albumin 4.0 g/dl (3.5-5.0) Lipase 68 U/L (23-300) Stool Occult Blood (IFOB) Positive (NEGATIVE) Coagulation Test 12/02/18 18:38 Prothrombin Time 12.6 seconds Prothromb Time International Ratio 0.94 Activated Partial Thromboplast Time 29 seconds ED Course/Re-evaluation Clinical Indication for ER IV: Hydration, IV Access ED Course The patient was admitted to room. A history and physical obtained. Differential diagnoses were considered. An IV was started. A CBC, CMP, PT and INR were obtained. Positive for Hemoccult stool. Patient was typed and screened.CBC showing RBCs 3.75, H&H 9.5 and 30.1, platelets 178, chemistry showing sodium 135, potassium 3.1, INR 0.94. Patient was given a 1 L normal saline bolus. He was also given an 80 mg Protonix bolus and started on an 80 mg Protonix drip. I did review the results with the patient, I also spoke with Dr. Berg as noted below, he's accepted the patient into the his services, the patient will be admitted to the medical floor, likely scoped tomorrow. Patient expressed understanding and is agreeable with this plan care. 12/02/2018 8:14:34 pm I did speak with Dr. Berg, who placed the patient on CIWA protocol as he does drink on a daily basis though the patient states he only drinks about 1 time tumbler night, he is nothing by mouth, and started on the Protonix drip. Decision to Disposition Date: December 02, 2018 Decision to Disposition Time: 20:14 Depart Departure Latest Vital Signs Vital Signs Date Time Temp Pulse Resp B/P (MAP) Pulse Ox O2 Delivery O2 Flow Rate FiO2 12/02/18 19:25 3.0 12/02/18 18:31 98.6 74 16 153/102 99 Nasal Cannula Impression: Primary Impression: Upper GI bleed Condition: Improved Disposition: Admitted from ER Referrals: SIS ALDRICH DO (PCP) VERONICA HERRERA RIPSAW GRADER-BC December 02, 2018 18:26
[2018-12-02] MEDS ORDERED: HYDR12.561 PO (18:39)
[2018-12-02] MEDS ORDERED: CITA-145 PO (18:39)
[2018-12-02] MEDS ORDERED: MELO-205 PO (18:40)
[2018-12-02] MEDS ORDERED: NS(*) 0.9% 1000 ML BAG 1,000 ML IV ONE (18:54)
[2018-12-02] MEDS ORDERED: PANTOPRAZOLE SOD(*)40 MG VIAL 80 MG in NS(*) 0.9% 100 ML BAG 100 ML IVPB ONE (18:55)
[2018-12-02] MEDS ORDERED: ONDANSETRON 4 MG/2 ML VIAL IVP ONE (18:55)
[2018-12-02 19:31] LABS: PLATELET COUNT, AUTOMATED 178 K/uL (150-450)
[2018-12-02 19:52] LABS: INR 0.94
[2018-12-02] MEDS ORDERED: PANTOPRAZOLE SOD(*)40 MG VIAL 80 MG in NS(*) 0.9% 100 ML BAG 100 ML IV SCH (20:15)
[2018-12-02] MEDS ORDERED: NS(*) 0.9% 1000 ML BAG 1,000 ML IV PRN (20:40)
--- NOTE | 2018-12-02 20:51 | EKG ---
FACILITY: [facility] PATIENT NAME: KERRI GARCIA : [id number] MR: [id number] V: [id number] EXAM DATE: ORDERING PHYSICIAN: VERONICA HERRERA TECHNOLOGIST: ALIN Crabtree Reason : Blood Pressure : / mmHG Vent. Rate : 074 BPM Atrial Rate : 074 BPM P-R Int : 200 ms QRS Dur : 102 ms QT Int : 412 ms P-R-T Axes : 049 040 032 degrees QTc Int : 457 ms Normal sinus rhythm Normal ECG When compared with ECG of 26-SEP-2018 15:02, No significant change was found Confirmed by Todd Jimenez ([id number]) on 12/03/2018 7:48:02 AM Referred By: Confirmed By:Todd Avendano
[2018-12-02 21:14] VITALS: BP 154/101
[2018-12-02] MEDS ORDERED: KCL/DNS 20 MEQ/1000 ML PREMIX 1,000 ML IV PRN (22:52)
[2018-12-02] MEDS ORDERED: ONDANSETRON 4 MG/2 ML VIAL IVP PRN (22:55)
[2018-12-02] MEDS ORDERED: FLUSH 10 ML SYR IVP PRN (22:55)
[2018-12-02 23:32] VITALS: BP 156/96
[2018-12-03] VITALS (10 sets, daily range): BP systolic 100–153; BP diastolic 61–96
[2018-12-03] MEDS: KCL (*) 20 MEQ/100 ML PREMIX 100 ML IV SCH ×2 (00:04→02:42)
--- NOTE | 2018-12-03 01:14 | Hospitalist Consultation ---
History of Present Illness Requesting Physician Dr Loredo Reason for Consult Management comorbidities Chief Complaint Melena History of Present Illness 68M presented with concern for melena. PMHx significant for depression, sleep disturbance, GI bleed. Reports onset over last day of black loose stools. Was concerned about possible GI bleeding and came in for evaluation. Has heme positive stool and Hgb is in 9 range. Admitted for monitoring and further evaluation. History Problems: (1) Peptic ulcer disease Status: Chronic (2) Depression Status: Chronic Home Meds Active Scripts Trazodone Hcl (TRAZODONE HCL) 150 Mg Tablet, 150 MG PO QHS, #30 TAB-CAP 0 Refills Prov:CAROL WOODS MD 06/10/18 Melatonin (MELATONIN) 3 Mg Tablet, 3 MG PO QHS PRN for INSOMNIA, #30 TAB Prov:KONRAD GAINES [facility] 05/11/18 Reported Medications Meloxicam (MELOXICAM) 7.5 Mg Tablet, 1 TAB PO QHS 12/02/18 Hydrochlorothiazide (HYDROCHLOROTHIAZIDE) 12.5 Mg Tablet, 1 TAB PO QDAY, TAB 12/02/18 Citalopram Hydrobromide (CITALOPRAM HBR) 20 Mg Tablet, 40 MG PO QDAY, #5 TAB 12/02/18 Lisinopril (LISINOPRIL) 10 Mg Tablet, 10 MG PO QDAY, TAB 05/08/18 Discontinued Reported Medications Alprazolam (XANAX) 0.5 Mg Tablet, 1 TAB PO TID PRN for ANXIETY, TAB 05/08/18 Lisinopril (LISINOPRIL) 5 Mg Tablet, 2.5 MG PO QDAY, TAB 05/08/18 Multivits,Th W-Fe,Other Min (THERA-M) 1 Each Tablet, 1 EACH PO QDAY 05/05/18 Discontinued Scripts Furosemide (LASIX) 40 Mg Tablet, 1 TAB PO DAILY, #3 TAB Prov:FAISAL CAI DO 09/26/18 Citalopram Hydrobromide (CITALOPRAM HBR) 20 Mg Tablet, 20 MG PO QDAY, #30 TAB Prov:KONRAD GAINESP 05/11/18 [Calcium Carbonate/Vitamin D3] 1 EA TAB No Conflict Check, 1 EACH PO BIDBS, #60 TAB Prov:KONRAD GAINES [facility] 05/11/18 Pantoprazole Sodium (PANTOPRAZOLE SODIUM) 40 Mg Tablet., 40 MG PO BID, #60 TAB Prov:KONRAD GAINES [facility] 05/11/18 Allergies: Coded Allergies: bupropion (Verified Allergy, Mild, 06/09/18) Patient History: FH: breast cancer MOTHER Hx Smoking: No Smoking Status: Former Smoker Exposure to Second Hand Smoke?: No When Quit Tobacco?: 1969's Caffeine Intake: Soda Caffeine/Cups Per Day: 2 glasses per day Hx Alcohol Use: Yes Alcohol Used: Liquor Hx Substance Use Disorder: Yes Social Drug Use: Former Social Drugs: Marijuana Amount Of Social Drug/s Used: Edibles last summer History of IV Drug Use: No Review of Systems Gastrointestinal: Melena Exam Vital Signs Vital Signs Date Time Temp Pulse Resp B/P (MAP) Pulse Ox O2 Delivery O2 Flow Rate FiO2 12/02/18 23:32 98.5 80 18 156/96 (116) 96 Nasal Cannula 1.0 General Appearance: Alert, Awake, No Acute Distress Neuro: No Gross deficits Cardiovascular: Normal Rhythm & Peripheral Pulses Respiratory: No Respiratory Distress GI: Abd Soft and Non-Tender Musculoskeletal: No Weakness/Pain Extremities: Soft and Non Tender, Warm, Pulses, Perfused Medical Decision Making Data Points Result Diagram: 12/02/18183712/02/181837 Assessment and Plan Problems: (1) GI bleed Status: Acute Assessment & Plan: Recommend stopping meloxicam. Other cares per primary. (2) HTN (hypertension) Status: Chronic Assessment & Plan: He is on chronic lisinopril, HCTZ. These are held until extent of bleed in further clarified. (3) GENERALIZED ANXIETY DISORDER Status: Chronic Assessment & Plan: On chronic SSRI, will need to restart when taking PO. Venous Thromboembolism Antithrombotics Is Pt On Any Antithrombotics?: No Prophylaxis Tx Contraindicated Pharmacological Contraindicati: Active Bleeding Exam Sepsis Risk: No Definite Risk BORGES MAEGAN GIBBONS DO December 03, 2018 01:14
[2018-12-03 06:17] LABS: PLATELET COUNT, AUTOMATED 146 K/uL (150-450)
--- NOTE | 2018-12-03 08:23 | Gen Surgery History & Physical ---
History of Present Illness Chief Complaint Hematemesis, melena History of Present Illness 68yo male presents to the ER after an episode of hematemesis and he reports melena in his stools for the last week. He has had about 1-2 melenotic stools a day for the last week. He was transferred emergently to [facility] in March 2018 with acute GI bleeding thought due to esophageal varices ([facility] doesn't have the equipment to band varices) since his is a known alcoholic but it turned out to be due to PUD and required laparotomy with suture ligation of GDA to stop the bleeding. He apparently was d/kelly on PPI for a month but no refills were prescr ibed and so he stopped the PPI after he ran out of pills. He takes meloxicam daily for musculoskeletal pain. He hasn't eaten well in the last week as he has had abdominal discomfort. History Problems: (1) History of exploratory laparotomy Status: Chronic (2) GERD (gastroesophageal reflux disease) Status: Chronic (3) Chronic back pain Status: Chronic (4) History of alcohol use Status: Chronic (5) BPH (benign prostatic hyperplasia) Status: Chronic (6) Depression Status: Chronic (7) Peptic ulcer disease Status: Chronic (8) HTN (hypertension) Status: Chronic (9) GENERALIZED ANXIETY DISORDER Status: Chronic (10) History of inguinal hernia repair Status: Resolved (11) Hx of spinal surgery Status: Resolved (12) H/O repair of rotator cuff Status: Resolved Home Meds Active Scripts Trazodone Hcl (TRAZODONE HCL) 150 Mg Tablet, 150 MG PO QHS, #30 TAB-CAP 0 Refills Prov:CAROL WOODS MD 06/10/18 Melatonin (MELATONIN) 3 Mg Tablet, 3 MG PO QHS PRN for INSOMNIA, #30 TAB Prov:KONRAD GAINES [employer] [facility] 05/11/18 Reported Medications Meloxicam (MELOXICAM) 7.5 Mg Tablet, 1 TAB PO QHS 12/02/18 Hydrochlorothiazide (HYDROCHLOROTHIAZIDE) 12.5 Mg Tablet, 1 TAB PO QDAY, TAB 12/02/18 Citalopram Hydrobromide (CITALOPRAM HBR) 20 Mg Tablet, 40 MG PO QDAY, #5 TAB 12/02/18 Lisinopril (LISINOPRIL) 10 Mg Tablet, 10 MG PO QDAY, TAB 05/08/18 Discontinued Reported Medications Alprazolam (XANAX) 0.5 Mg Tablet, 1 TAB PO TID PRN for ANXIETY, TAB 05/08/18 Lisinopril (LISINOPRIL) 5 Mg Tablet, 2.5 MG PO QDAY, TAB 05/08/18 Multivits,Th W-Fe,Other Min (THERA-M) 1 Each Tablet, 1 EACH PO QDAY 05/05/18 Discontinued Scripts Furosemide (LASIX) 40 Mg Tablet, 1 TAB PO DAILY, #3 TAB Prov:FAISAL CAI V DO 09/26/18 Citalopram Hydrobromide (CITALOPRAM HBR) 20 Mg Tablet, 20 MG PO QDAY, #30 TAB Prov:KONRAD GAINES [facility] 05/11/18 [Calcium Carbonate/Vitamin D3] 1 EA TAB No Conflict Check, 1 EACH PO BIDBS, #60 TAB Prov:KONRAD GAINES [facility] 05/11/18 Pantoprazole Sodium (PANTOPRAZOLE SODIUM) 40 Mg Tablet.dr, 40 MG PO BID, #60 TAB Prov:KONRAD GAINES [facility] 05/11/18 Allergies: Coded Allergies: bupropion (Verified Allergy, Mild, 06/09/18) Patient History: FH: breast cancer MOTHER Review of Systems All Systems Reviewed/Normal: Yes, Except as Noted Gastrointestinal: Hematemesis, Melena, Abdominal Pain Exam General Appearance: Alert, Awake, No Acute Distress, Afebrile Neuro: No Gross deficits Eyes: PERRLA GI: Abd Soft and Non-Tender (Well healed midline surgical scar) Extremities: Warm, Perfused Psych: Alert & Oriented X3, Appropriate Mood & Affect Medical Decision Making Data Points Result Diagram: 12/03/1852712/03/18527 Assessment and Plan Problems: (1) Peptic ulcer disease with hemorrhage Status: Acute Assessment & Plan: 12/03/18: Admit, NPO, PPI gtt, IV fluids, follow H/H, transfuse for Hb less than 9. Stop all NSAIDS (and other potential blood thinners). Pt told to never take NSAIDS, including meloxicam, ever again. He should also be on PPI rx for the rest of his life to prevent future PUD life threatening bleeding episodes. Will plan on EGD later today. 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 Time Spent: < 30 min Venous Thromboembolism Antithrombotics Is Pt On Any Antithrombotics?: No LM MORRIS MD December 03, 2018 08:23
[2018-12-03] MEDS ORDERED: diphenhydrAMINE 50 MG/ML VIAL IVP ONE (08:45)
[2018-12-03] MEDS ORDERED: ACETAMINOPHEN(*)1000 MG/100 ML 100 ML IVPB ONE ×2 (08:45→22:47)
[2018-12-03] MEDS: PANTOPRAZOLE SOD(*)40 MG VIAL 80 MG in NS(*) 0.9% 100 ML BAG 100 ML IV SCH ×2 (09:22→21:47)
[2018-12-03] MEDS ORDERED: NORMOSOL R SOLN(*) 1000 ML BAG 1,000 ML IV ONE (10:12)
[2018-12-03] MEDS ORDERED: LIDOCAINE MPF 1% 5 ML VIAL ONE (11:37)
[2018-12-03] MEDS ORDERED: PROPOFOL EMUL(*) 10MG/ML 20 ML 40 ML ONE (11:37)
[2018-12-03] MEDS ORDERED: MIDAZOLAM 2 MG/2 ML VIAL ONE (11:39)
[2018-12-03] MEDS ORDERED: LABETALOL HCL 25 MG/5 ML SYRINGE ONE (12:06)
[2018-12-03] MEDS ORDERED: KCL/DNS 20 MEQ/1000 ML PREMIX 1,000 ML IV PRN (12:15)
[2018-12-03] MEDS: SUCRALFATE 1 GM TAB PO SCH ×3 (13:04→20:23)
--- NOTE | 2018-12-03 15:44 | Medical Nutrition Therapy ---
Nutrition Anthropometrics Height (Inches): 69.00 Height (Calculated Centimeters: 175.775069 Weight (Pounds): 202 Weight (Calculated Kilograms): 91.626 BMI: 29.8 Hx Weight Loss: Yes Rahul Nutrition Score: Probably Inadequate Rahul Nutrition Risk Score: 19 Dietary Referral Nutrition Risk Factors: Unplanned Loss >10lbs Nutrition Risk Comment: Pt states he has lost 20lbs from stomach pain d/t bleeding Physical Findings Physical Appearance: Overweight BMI 25-29 Skin Appearance Skin Appearance: Edema Edema Location Modifier: Both Edema Location: Lower Extremity Type of Edema: Degree of Edema: 1+ Gastrointestinal Symptoms GI Symtoms: Change in Bowel Pattern Tube Present: Bowel Sounds: Recent Bowel Pattern: Diarrhea, Incontinent Stool Characteristics: Black Nutrition/Food History Decreased Appetite, N/V, > 10 lb Wt Loss/1 Month Decreasing Alcohol Use: Currently Amount of Alcohol Used: 1/day Nutritional Diagnosis Nutritional Risk Acuity 2: Unintended Wt Loss >5%/mo (12/03 Pt states down 20lb d/t stomach pain), V/D > 3 Days, Pr Appetite > 3d Nutritional Risk Acuity 3: GI Bleed Past Medical History: Inguinal hernia repair, spinal surgery, repair of rotator cuff, Chronic back pain, alcohol use, GENERALIZED ANXIETY DISORDER, Depression, BPH, GERD, Peptic ulcer disease with hemorrhage, HTN, Flexion contractures Nutritional Acuity: 2-Moderate Nutrition Diagnosis: Inadequate Food Intake Nutrition Etiology: Physiological Causes Nutrition Problem/Etiology/Sym: inadequate food intake related to physiological causes as evidence by loss of 20# from stomach pain d/t GI bleeding, N/V this past week Adjusted Energy Requirement Re: 1994 (HB: BMI 29.8 AF 1.3 202lb) Protein Requirement: 92 (1g/kg x 91.6kg) Fluid Requirement: 1994 (1ml/jenise) Diet Type: Diet as Tolerated JACKLYN/REG Nutrition Monitoring & Eval RD Patient Assessment Time: [address] Assessment Type: RD Assessment Follow Up Date: December 06, 2018 Nutritional Comment: 12/03 Pt dx has had GI bleeding and N/V over the past week, HTN, PUD with hemorrhange, anemia d/t blood loss, and daily ETOH use. Pt has very low Hgb 8.0 and Hct 25.4. Pt has stated they lost 20# from stomach pain d/t bleeding. Will continue to monitor and encourage intake. PACHECO KAUFMAN December 03, 2018 11:00
[2018-12-03] MEDS ORDERED: MELATONIN 3 MG TAB PO PRN (21:00)
[2018-12-03] MEDS ORDERED: traZODone HCL 50 MG TAB PO SCH (21:00)
[2018-12-03] MEDS ORDERED: diphenhydrAMINE 50 MG/ML VIAL ONE (22:46)
[2018-12-03] MEDS ORDERED: NS(*) 0.9% 500 ML BAG 500 ML ONE (23:12)
[2018-12-04 00:29] VITALS: BP 98/60
[2018-12-04 01:35] VITALS: BP 112/74
[2018-12-04 01:51] VITALS: BP 118/74
[2018-12-04 04:09] VITALS: BP 123/78
[2018-12-04 04:15] VITALS: BP 123/78
[2018-12-04 05:59] LABS: PLATELET COUNT, AUTOMATED 129 K/uL (150-450)
[2018-12-04] MEDS: SUCRALFATE 1 GM TAB PO SCH (06:08)
[2018-12-04] MEDS ORDERED: PANT40TA65 PO (07:33)
[2018-12-04] MEDS ORDERED: SUCR1TAB51 PO (07:33)
[2018-12-04] MEDS ORDERED: ALPR-448 PO (07:33)
--- NOTE | 2018-12-04 07:39 | Short(Outpt) Discharge Summary ---
Discharge Summary Reason for Hosp/Final Diag: (1) Peptic ulcer disease with hemorrhage Status: Acute Hospital Course & Plan: 12/03/18: Admit, NPO, PPI gtt, IV fluids, follow H/H, transfuse for Hb less than 9. Stop all NSAIDS (and other potential blood thinners). Pt told to never take NSAIDS, including meloxicam, ever again. He should also be on PPI rx for the rest of his life to prevent future PUD life threatening bleeding episodes. Will plan on EGD later today. 12/04/18: Doing well. H/H responded well to transfusion. No further hematemesis or melena even though he's had several brown BMs. Will d/c to home. I will see him back in 3 weeks and schedule another EGD in 6 weeks to monitor the ulcer for healing. Will send out on pantoprazole 40mg bid until EGD and if ulcer is healed will decrease to 40mg a day indefinitely and carafate qid for 30 days. (2) Anemia due to blood loss Status: Chronic Hospital Course & Plan: Transfuse pRBC for Hb less than 9 (3) History of alcohol use Status: Chronic Departure Discharge to: Home, Self Care Discharge Instructions Home Meds Active Scripts Alprazolam 0.5 Mg Tab (ALPRAZOLAM 0.5 MG TAB) 0.5 Mg Tablet, 1 TAB PO TID PRN for ANXIETY, #20 TAB 0 Refills Prov:LM MORRIS MD 12/04/18 Sucralfate (SUCRALFATE) 1 Gm Tablet, 1 TAB PO QID, #120 TAB 0 Refills Prov:LM MORRIS MD 12/04/18 Pantoprazole Sodium (PANTOPRAZOLE SODIUM) 40 Mg Tablet.dr, 1 TAB PO BID, #60 TAB 3 Refills Prov:LM MORRIS MD 12/04/18 Trazodone Hcl (TRAZODONE HCL) 150 Mg Tablet, 150 MG PO QHS, #30 TAB-CAP 0 Refills Prov:CAROL WOODS MD 06/10/18 Melatonin (MELATONIN) 3 Mg Tablet, 3 MG PO QHS PRN for INSOMNIA, #30 TAB Prov:KONRAD GAINES 05/11/18 Reported Medications Meloxicam (MELOXICAM) 7.5 Mg Tablet, 1 TAB PO QHS 12/02/18 Hydrochlorothiazide (HYDROCHLOROTHIAZIDE) 12.5 Mg Tablet, 1 TAB PO QDAY, TAB 12/02/18 Citalopram Hydrobromide (CITALOPRAM HBR) 20 Mg Tablet, 40 MG PO QDAY, #5 TAB 12/02/18 Lisinopril (LISINOPRIL) 10 Mg Tablet, 10 MG PO QDAY, TAB 05/08/18 Discontinued Reported Medications Alprazolam (XANAX) 0.5 Mg Tablet, 1 TAB PO TID PRN for ANXIETY, TAB 05/08/18 Lisinopril (LISINOPRIL) 5 Mg Tablet, 2.5 MG PO QDAY, TAB 05/08/18 Multivits,Th W-Fe,Other Min (THERA-M) 1 Each Tablet, 1 EACH PO QDAY 05/05/18 Discontinued Scripts Furosemide (LASIX) 40 Mg Tablet, 1 TAB PO DAILY, #3 TAB Prov:FAISAL CAI DO 09/26/18 Citalopram Hydrobromide (CITALOPRAM HBR) 20 Mg Tablet, 20 MG PO QDAY, #30 TAB Prov:KONRAD GAINES [facility] 05/11/18 [Calcium Carbonate/Vitamin D3] 1 EA TAB No Conflict Check, 1 EACH PO BIDBS, #60 TAB Prov:KONRAD GAINES [facility] 05/11/18 Pantoprazole Sodium (PANTOPRAZOLE SODIUM) 40 Mg Tablet., 40 MG PO BID, #60 TAB Prov:KONRAD GAINES [facility] 05/11/18 Follow up Referrals: General Surgery - 12/24/18 @ Surgery, General with LM MORRIS MD You have a follow up appointment scheduled with Dr. Morris on 12/24/18, at 9:00am. Diet: Regular Activity: As Tolerated Special Instructions: AVOID ALL NSAIDS OR MEDICATIONS THAT INCLUDE NSAIDS (aspirin, aleve, advil, motrin, ibuprofen, naproxen, naprosyn, mobic, meloxicam, etc) as these will make your ulcer worse and can make it rebleed. Tylenol is OK to take. Take the pantoprazole twice every day until I tell you to decrease down to once a day after your next upper endoscopy in 6 weeks. Take carafate 4 times every day until you run out of it in 30 days. LM MORRIS MD December 04, 2018 07:39
[2018-12-04 08:46] VITALS: BP 133/76
[2018-12-04] MEDS ORDERED: LISINOPRIL 10 MG TAB PO SCH (09:00)
[2018-12-04] MEDS ORDERED: PANTOPRAZOLE SOD 40 MG TABEC PO SCH (09:00)
[2018-12-04] MEDS ORDERED: HYDROCHLOROTHIAZIDE 25 MG TAB PO SCH (09:00)
[2018-12-04] MEDS ORDERED: CITALOPRAM HYDROBROM 20 MG TAB PO SCH (09:00)
== END 2018-12-04 09:15 | disposition home or self-care (01) | DRG 379 ==
LOC: ER 19:05 → MED 20:35
PROVIDERS: ADMIT Surgery; ATTEND Surgery
PROC: 30233N1 Transfusion of Nonautologous Red Blood Cells into Peripheral Vein, Percutaneous Approach (ICD-10-PCS; 2018-12-02)
PROC: 0DJ08ZZ Inspection of Upper Intestinal Tract, Via Natural or Artificial Opening Endoscopic (ICD-10-PCS; principal; 2018-12-03 11:55)
DX: K26.4 Chronic or unspecified duodenal ulcer with hemorrhage (principal); D50.0 Iron deficiency anemia secondary to blood loss (chronic); K44.9 Diaphragmatic hernia without obstruction or gangrene; I10 Essential (primary) hypertension; K21.9 Gastro-esophageal reflux disease without esophagitis; N40.0 Benign prostatic hyperplasia without lower urinary tract symptoms; G89.29 Other chronic pain; R15.9 Full incontinence of feces; F41.8 Other specified anxiety disorders; F17.210 Nicotine dependence, cigarettes, uncomplicated; Z88.8 Allergy status to other drugs, medicaments and biological substances
CPT/HCPCS: 36415; 82040; 82247; 82274; 82310; 82374; 82435; 82565; 82947; 83690; 84075; 84132; 84155; 84295; 84450; 84460; 84520; 85014; 85018; 85025; 85610; 85730; 86677; 86850; 86870; 86900; 86901; 86902; 86920; 86922; 93005; 96365; 96375; 99284; C9113; J0131; J1200; J2001; J2250; J2405; J2704; J3480; J7030; J7050; P9016